=== PATIENT | male | born 1925 | race Caucasian/White ===

== ENCOUNTER 2016-12-22 13:23 | Inpatient (IN) | payer MEDICARE, OTHER ==
[~2016-12-22] VITALS: Ht 182.9 cm; Wt 111.0 kg
[2016-12-22] VITALS (17 sets, daily range): BP systolic 90–177; BP diastolic 64–134; PULSE 86–129; RESP 13–31; TEMP 98–98.2; O2SAT 91–100
[~2016-12-22 13:23] MED LIST: CARA1TAB6 PO; FERR1TAB36 PO; METO25TA3 PO; PANT40TA3 PO; POTA-243 PO
[2016-12-22] MEDS ORDERED: FERR200T PO (13:32)
[2016-12-22] MEDS ORDERED: XELO500T PO (14:09)
[2016-12-22] MEDS ORDERED: ASPI81CH CHEW (14:09)
[2016-12-22] MEDS ORDERED: ZOFR4TAB PO (14:09)
[2016-12-22] MEDS ORDERED: LISI2.5T3 PO (14:09)
[2016-12-22] MEDS ORDERED: VENTAER INH (14:09)
[2016-12-22 14:26] LABS: AUTOMATED NEUTROPHIL # 3.6 TH/MM3 (1.8-7.7); BASOPHIL % 0.8 % (0.0-2.0); EOSINOPHIL % 0.8 % (0.0-4.0); HEMATOCRIT 43.8 % (39.0-51.0); LYMPH % 15.8 % (9.0-44.0); LYMPHOCYTE # 0.9 TH/MM3 (1.0-4.8); MEAN CELL VOLUME 100.3 FL (80.0-100.0); MEAN CORPUSCULAR HEMOGLOBIN 32.4 PG (27.0-34.0); MEAN CORPUSCULAR HGB CONC 32.3 % (32.0-36.0); MONO % 17.4 % (0.0-8.0); NEUT % 65.2 % (16.0-70.0); RED BLOOD COUNT 4.37 MIL/MM3 (4.50-5.90); RED CELL DISTRIBUTION WIDTH 20.3 % (11.6-17.2); WHITE BLOOD COUNT 5.5 TH/MM3 (4.0-11.0)
[2016-12-22 14:31] LABS: HEMO FLAGS AUTO DIFF
--- NOTE | 2016-12-22 14:38 | RADRPT ---
EXAM DATE/TIME: 12/22/2016 14:18 [place] COMPARISON: CHEST SINGLE AP, April 25, 2016, 20:01. INDICATIONS : Shortness of breath today. MEDICAL HISTORY : Carcinoma, prostatic. Afib. SURGICAL HISTORY : Port. ENCOUNTER: Initial ACUITY: 1 day PAIN SCORE: 0/10 LOCATION: Bilateral chest FINDINGS: A single view of the chest demonstrates prominence of the pulmonary vasculature bilaterally. There ap pears to be an infiltrate and/or effusion the left lower lung. This is new compared to the prior exam . The heart size is mildly enlarged. There is an [id number] on the right side. The bony structures are stable. CONCLUSION: 1. Pulmonary venous congestion. 2. Infiltrate and effusion in the left lung base. 3. Cardiomegaly. Amor Shaikh MD on December 22, 2016 at 14:35 Board Certified Radiologist. This report was verified electronically.
[2016-12-22 14:39] LABS: CHLORIDE 106 MEQ/L (98-107); POTASSIUM 3.8 MEQ/L (3.5-5.1); SODIUM (NA) 142 MEQ/L (136-145)
[2016-12-22 14:43] LABS: ANION GAP 10 MEQ/L (5-15); APTT (PATIENT) 24.5 SEC (24.3-30.1); BICARBONATE 25.9 MEQ/L (21.0-32.0); MAGNESIUM 1.8 MG/DL (1.5-2.5); PROTHROMBIN TIME - PATIENT 11.4 SEC (9.8-11.6)
[2016-12-22 14:44] LABS: BLOOD UREA NITROGEN 21 MG/DL (7-18)
[2016-12-22] MEDS ORDERED: CAPE1TAB2 PO (14:44)
[2016-12-22 14:46] LABS: ALT (GPT) 41 U/L (12-78); AST (GOT) 63 U/L (15-37); GLOMERULAR FILTRATION RATE 63 ML/MIN (>89)
[2016-12-22 14:48] LABS: TOTAL BILIRUBIN ADULT 1.1 MG/DL (0.2-1.0)
[2016-12-22 14:49] LABS: ALKALINE PHOSPHATASE 234 U/L (45-117); CREATINE KINASE 125 U/L (39-308)
--- NOTE | 2016-12-22 14:52 | PD ---
HPI Chief Complaint: Respiratory Symptoms Time Seen by Provider: 13:32 Travel History International Travel<30 days: No Contact w/Intl Traveler<30days: No Traveled to known affect area: No History of Present Illness HPI Patient is an 89-year-old male with history of stage IV adenocarcinoma of the stomach, atrial fibrillation currently not on anticoagulation secondary to high risk of GI bleeding, prostate adenocarcinoma, hypertension, dementia, subacute CVA, GERD, hypertension, sleep apnea presents to emergency room with complaints of shortness of breath. Patient reports that he has been dealing with his shortness of breath for years, reports that he used to be a past smoker and does have some lung problems, reports that he has been more short of breath this morning. Patient denies any chest pain at this time, reports of breath at rest as well as on exertion. Patient denies any fevers or chills, reports that sometimes he coughs and doesn't think that he brings anything up. Overall, patient is a poor historian PFSH Past Medical History Hx Anticoagulant Therapy: No (STATES NONE - ON PRADAXA AT SOME TIME AGO) Anxiety: No Depression: No Heart Rhythm Problems: Yes (a fib ) Cancer: Yes (PROSTATE CANCER, STOMACH CANCER) Cardiovascular Problems: Yes (HTN) Chemotherapy: Yes Diabetes: No Diminished Hearing: No Endocrine: No Gastrointestinal Disorders: Yes (GIB) GERD: Yes Glaucoma: No Hepatitis: No Hiatal Hernia: No Hypertension: Yes Immune Disorder: No Implanted Vascular Access Dvce: No Medical other: No Musculoskeletal: No Neurologic: No Psychiatric: No Reproductive: No Respiratory: Yes (SLEEP APNEA ON CPAP AND RESPIRATORY PROBLEMS PER PT.) Sleep Apnea: Yes Thyroid Disease: No Tetanus Vaccination: Unknown Past Surgical History Abdominal Surgery: Yes (DINESH, APPY) Cardiac Surgery: No Ear Surgery: No Endocrine Surgery: No Eye Surgery: Yes (RIGHT EYE CATARACT EXTRACT) Genitourinary Surgery: Yes (PROSTATE) Gynecologic Surgery: No Neurologic Surgery: No Oral Surgery: No Pacemaker: No Thoracic Surgery: No Other Surgery: Yes Social History Alcohol Use: Yes (RARE) Tobacco Use: No (QUIT 40 YEARS) Substance Use: No Allergies-Medications (Allergen,Severity, Reaction): Coded Allergies: Aspirin (Verified Allergy, Severe, SOB, 12/22/16) Ibuprofen (Verified Allergy, Severe, CAN'T BREATHE, 12/22/16) ALL NSAIDS Nonsteroidal Anti-Inflammatory Agts (Verified Allergy, Severe, SOB, 12/22/16 ) Reported Meds & Prescriptions Reported Meds & Active Scripts Active Reported Capecitabine 500 Mg Tab 1,000 Mg PO DIRECTED Cytotoxic agent. Swallow whole with water 30 minutes after a meal. Do not cut or crush. Ventolin Hfa 18 GM Inh (Albuterol Sulfate) 90 Mcg/Act Aer 2 Puff INH Q4-6H PRN Aspirin 81 Mg Chew 81 Mg CHEW DAILY Lisinopril 2.5 Mg Tab 2.5 Mg PO DAILY Zofran (Ondansetron HCl) 4 Mg Tab 4 Mg PO Q12HR PRN Review of Systems General / Constitutional: No: Fever Eyes: No: Visual changes HENT: No: Headaches Cardiovascular: No: Chest Pain or Discomfort Respiratory: Positive: Cough, Shortness of Breath Gastrointestinal: No: Abdominal Pain Genitourinary: No: Dysuria Musculoskeletal: No: Pain Skin: No Rash Neurologic: No: Weakness Psychiatric: No: Depression Endocrine: No: Polydipsia Hematologic/Lymphatic: No: Easy Bruising Physical Exam Narrative GENERAL: Moderate distress SKIN: Focused skin assessment warm/dry. HEAD: Atraumatic. Normocephalic. EYES: Pupils equal and round. No scleral icterus. No injection or drainage. ENT: No nasal bleeding or discharge. Mucous membranes pink and moist. NECK: Trachea midline. No JVD. CARDIOVASCULAR: Irregular rate and rhythm. No murmur appreciated. RESPIRATORY: No accessory muscle use. Clear to auscultation. Breath sounds equal bilaterally. GASTROINTESTINAL: Abdomen soft, non-tender, nondistended. Hepatic and splenic margins not palpable. MUSCULOSKELETAL: No obvious deformities. No clubbing. No cyanosis. No edema. NEUROLOGICAL: Awake and alert. PSYCHIATRIC: Appropriate mood and affect, pleasantly confused Data Data Last Documented VS Vital Signs Date Time Temp Pulse Resp B/P Pulse Ox O2 Delivery O2 Flow Rate FiO2 12/22/16 14:41 129 16 157/115 97 Nasal Cannula 2 12/22/16 13:46 98.2 Orders Complete Blood Count With Diff (12/22/16 13:57) Comprehensive Metabolic Panel (12/22/16 13:57) Prothrombin Time / Inr (Pt) (12/22/16 13:57) Act Partial Throm Time (Ptt) (12/22/16 13:57) Lactic Acid Sepsis Protocol (12/22/16 13:57) Magnesium (Mg) (12/22/16 13:57) Phosphorus (Po4) (12/22/16 13:57) Lipase (12/22/16 13:57) Ckmb (Isoenzyme) Profile (12/22/16 13:57) Troponin I (12/22/16 13:57) Urinalysis - C+S If Indicated (12/22/16 13:57) Blood Culture (12/22/16 13:57) Chest, Single Ap (12/22/16 13:57) Ecg Monitoring (12/22/16 13:57) Iv Access Insert/Monitor (12/22/16 13:57) Oximetry (12/22/16 13:57) Oxygen Administration (12/22/16 13:57) Vital Signs (Adult) Q15MX4,Q4H (12/22/16 14:38) Cardiac Rhythm WERNER.Q8H (12/22/16 14:38) Notify Dr: Other (12/22/16 14:38) Diltiazem Inj (Cardizem Inj) (12/22/16 14:45) CKMB (12/22/16 13:35) CKMB% (12/22/16 13:35) B-Type Natriuretic Peptide (12/22/16 14:54) Azithromycin Inj (Zithromax Inj) (12/22/16 15:00) Ceftriaxone Inj (Rocephin Inj) (12/22/16 15:00) Labs Laboratory Tests Test 12/22/16 12/22/16 13:35 14:00 White Blood Count 5.5 TH/MM3 Red Blood Count 4.37 MIL/MM3 Hemoglobin 14.1 GM/DL Hematocrit 43.8 % Mean Corpuscular Volume 100.3 FL Mean Corpuscular Hemoglobin 32.4 PG Mean Corpuscular Hemoglobin 32.3 % Concent Red Cell Distribution Width 20.3 % Platelet Count 27 TH/MM3 Mean Platelet Volume 8.1 FL Neutrophils (%) (Auto) 65.2 % Lymphocytes (%) (Auto) 15.8 % Monocytes (%) (Auto) 17.4 % Eosinophils (%) (Auto) 0.8 % Basophils (%) (Auto) 0.8 % Neutrophils # (Auto) 3.6 TH/MM3 Lymphocytes # (Auto) 0.9 TH/MM3 Monocytes # (Auto) 1.0 TH/MM3 Eosinophils # (Auto) 0.0 TH/MM3 Basophils # (Auto) 0.0 TH/MM3 Prothrombin Time 11.4 SEC Prothromb Time International 1.0 RATIO Ratio Activated Partial 24.5 SEC Thromboplast Time Sodium Level 142 MEQ/L Potassium Level 3.8 MEQ/L Chloride Level 106 MEQ/L Carbon Dioxide Level 25.9 MEQ/L Anion Gap 10 MEQ/L Blood Urea Nitrogen 21 MG/DL Creatinine 1.10 MG/DL Estimat Glomerular Filtration 63 ML/MIN Rate Random Glucose 101 MG/DL Calcium Level 8.8 MG/DL Phosphorus Level 2.9 MG/DL Magnesium Level 1.8 MG/DL Total Bilirubin 1.1 MG/DL Aspartate Amino Transf 63 U/L (AST/SGOT) Alanine Aminotransferase 41 U/L (ALT/SGPT) Alkaline Phosphatase 234 U/L Total Creatine Kinase 125 U/L Creatine Kinase MB 4.1 NG/ML Troponin I 0.07 NG/ML Total Protein 7.0 GM/DL Albumin 3.3 GM/DL Lipase 145 U/L Lactic Acid Level 1.5 mmol/L [facility] Medical Decision Making Medical Screen Exam Complete: Yes Emergency Medical Condition: Yes Interpretation(s) EKG at 1326: A. fib with RVR at 131 bpm, qt/qtc: 301/378 Vital Signs Date Time Temp Pulse Resp B/P Pulse Ox O2 Delivery O2 Flow Rate FiO2 12/22/16 14:11 120 20 165/113 97 Nasal Cannula 2 12/22/16 14:11 97 Nasal Cannula 2 12/22/16 13:46 98.2 126 18 177/134 97 12/22/16 13:42 97 Nasal Cannula 2 12/22/16 13:41 18 97 Nasal Cannula 2 Differential Diagnosis Differential includes A. fib with RVR, pneumonia, GI bleed, bronchitis, electrolyte abnormality Narrative Course Patient is a 89 year old male who presents to ER with c/o of sob. Overall, patient is a poor historian, I am not able to obtain any information other than he has been feeling sob for the past few years but has worsening symptoms today. I did review his prior records for full medical history. 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 fib with RVR with heart rate in the 130s. As per prior records , patient currently is not on any anticoagulation as he has history of gastric cancer, his risk of bleeding outweighs benefits of anticoagulation. X-ray of the chest ordered to evaluate for pneumonia, lab work including blood cultures and lactic acid ordered. Cardizem drip initiated as patient does have A. fib with RVR. Vital Signs Date Time Temp Pulse Resp B/P Pulse Ox O2 Delivery O2 Flow Rate FiO2 12/22/16 14:41 129 16 157/115 97 Nasal Cannula 2 12/22/16 14:11 120 20 165/113 97 Nasal Cannula 2 12/22/16 14:11 97 Nasal Cannula 2 12/22/16 13:46 98.2 126 18 177/134 97 12/22/16 13:42 97 Nasal Cannula 2 12/22/16 13:41 18 97 Nasal Cannula 2 Last Impressions Chest X-Ray 12/22/16 [id number] Signed Impressions: Service Date/Time: Thursday, December 22, 2016 14:18 - CONCLUSION: 1. Pulmonary venous congestion. 2. Infiltrate and effusion in the left lung base. 3. Cardiomegaly. Amor Shaikh MD Laboratory Tests Test 12/22/16 12/22/16 13:35 14:00 White Blood Count 5.5 TH/MM3 (4.0-11.0) Red Blood Count 4.37 MIL/MM3 (4.50-5.90) Hemoglobin 14.1 GM/DL (13.0-17.0) Hematocrit 43.8 % (39.0-51.0) Mean Corpuscular Volume 100.3 FL (80.0-100.0) Mean Corpuscular Hemoglobin 32.4 PG (27.0-34.0) Mean Corpuscular Hemoglobin 32.3 % Concent (32.0-36.0) Red Cell Distribution Width 20.3 % (11.6-17.2) Platelet Count 27 TH/MM3 (150-450) Mean Platelet Volume 8.1 FL (7.0-11.0) Neutrophils (%) (Auto) 65.2 % (16.0-70.0) Lymphocytes (%) (Auto) 15.8 % (9.0-44.0) Monocytes (%) (Auto) 17.4 % (0.0-8.0) Eosinophils (%) (Auto) 0.8 % (0.0-4.0) Basophils (%) (Auto) 0.8 % (0.0-2.0) Neutrophils # (Auto) 3.6 TH/MM3 (1.8-7.7) Lymphocytes # (Auto) 0.9 TH/MM3 (1.0-4.8) Monocytes # (Auto) 1.0 TH/MM3 (0-0.9) Eosinophils # (Auto) 0.0 TH/MM3 (0-0.4) Basophils # (Auto) 0.0 TH/MM3 (0-0.2) Prothrombin Time 11.4 SEC (9.8-11.6) Prothromb Time International 1.0 RATIO Ratio Activated Partial 24.5 SEC Thromboplast Time (24.3-30.1) Sodium Level 142 MEQ/L (136-145) Potassium Level 3.8 MEQ/L (3.5-5.1) Chloride Level 106 MEQ/L (98-107) Carbon Dioxide Level 25.9 MEQ/L (21.0-32.0) Anion Gap 10 MEQ/L (5-15) Blood Urea Nitrogen 21 MG/DL (7-18) Creatinine 1.10 MG/DL (0.60-1.30) Estimat Glomerular Filtration 63 ML/MIN (>89) Rate Random Glucose 101 MG/DL (74-106) Calcium Level 8.8 MG/DL (8.5-10.1) Phosphorus Level 2.9 MG/DL (2.5-4.9) Magnesium Level 1.8 MG/DL (1.5-2.5) Total Bilirubin 1.1 MG/DL (0.2-1.0) Aspartate Amino Transf 63 U/L (15-37) (AST/SGOT) Alanine Aminotransferase 41 U/L (12-78) (ALT/SGPT) Alkaline Phosphatase 234 U/L (45-117) Total Creatine Kinase 125 U/L (39-308) Troponin I 0.07 NG/ML (0.02-0.05) Total Protein 7.0 GM/DL (6.4-8.2) Albumin 3.3 GM/DL (3.4-5.0) Lipase 145 U/L (73-393) Lactic Acid Level 1.5 mmol/L (0.4-2.0) Patient with A. fib RVR, patient will be started on cardizem gtt. X-ray of the chest shows pulmonary venous congestion, and will treat effusion left lung base, cardiomegaly, and cultures, will give a dose of azithromycin as well as Rocephin. Patient will require admission at this time. case reviewed with patient's son who is at bedside Critical Care Narrative Aggregate critical care time was 30 minutes. Time to perform other separately billable procedures was not included in the critical care time. My time did not include minutes spent treating any other patients simultaneously or on activities that did not directly contribute to the patient's treatment. The services I provided to this patient were to treat and/or prevent clinically significant deterioration that could result in: , decompensation, deterioration I provided critical care services requiring my management, as noted below: Chart data review, documentation time, medication orders and management, vital sign assessments/reviewing monitor data, ordering and reviewing lab tests, ordering and interpreting/reviewing x-rays and diagnostic studies, care of the patient and discussion of the patient with the admitting physicians. Physician Communication Physician Communication case reviewed with dr. moseley who accepts pt to service Diagnosis Primary Impression: Atrial fibrillation with rapid ventricular response Additional Impressions: SOB (shortness of breath) Elevated troponin Admitting Information Admitting Physician Requests: Admit Jeny Lopez DO Dec 22, 2016 14:52
[2016-12-22] MEDS: DILTIAZEM INJ 125 MG in SODIUM CHLORIDE 0.9% INJ 100 ML IV SCH ×2 (14:56→23:22)
[2016-12-22] MEDS ORDERED: cefTRIAXone INJ 1,000 MG in SODIUM CHLORIDE 0.9% INJ 100 ML IV ONE (15:00)
[2016-12-22] MEDS ORDERED: AZITHROMYCIN INJ 500 MG in SODIUM CHLOR 0.9% 250 ML INJ 250 ML IV ONE (15:00)
[2016-12-22 15:01] LABS: CKMB 4.1 NG/ML (0.5-3.6)
[2016-12-22 15:59] LABS: BLOOD, URINE TRACE (NEG); GLUCOSE,URINE NEG (NEG); KETONE, URINE NEG (NEG); NITRITE,URINE NEG (NEG)
[2016-12-22] MEDS ORDERED: FUROSEMIDE 40 MG/4 ML VIAL IV PUSH ONE (16:00)
[2016-12-22] MEDS: RESP: ALBUTEROL 2.5 MG/IPRATROPIUM 0.5 MG NEB (SCH) INH ×2 (16:10→16:11)
[2016-12-22 16:12] LABS: MUCUS URINE RARE /lpf (OCC); RBC, URINE 0-3 /hpf (0-3); SQUAMOUS EPITHELIAL CELL URINE 0-2 /hpf (0-5); URINE COLOR YELLOW (YELLW/STRAW); WBC, URINE 0-2 /hpf (0-5)
[2016-12-22 16:13] LABS: COMMENT (UR) CULT NOT INDICATED; CULTURE IF INDICATED CULT NOT INDICATED
[2016-12-22] MEDS ORDERED: DILTIAZEM HCL 25 MG/5 ML VIAL IV ONE (16:30)
[2016-12-22 17:00] LABS: BLOOD GAS BASE EXCESS -0.2 mmol/L (-2-2); BLOOD GAS HCO3 24 mmol/L (22-26); BLOOD GAS METHEMOGLOBIN 1.1 % (0-2); BLOOD GAS O2 HGB SATURATION 95 % (90-100); BLOOD GAS OXYGEN CONTENT 17.9 Vol % (12.0-20.0); BLOOD GAS PCO2 36 mmHG (38-42); BLOOD GAS PO2 99 mmHG (61-120); BLOOD GAS TOTAL HGB 13.3 G/DL (12.0-16.0); TEMP CORR TO 98.6
[2016-12-22 17:01] LABS: CRITICAL VALUE NO; OXYGEN DEVICE BIPAP
[2016-12-22 17:02] LABS: DRAW SITE LT RADIAL; FIO2 40 %; NUMBER OF ARTERIAL PUNCTURES 1; STAT YES; ULNAR PULSE PRESENT; VENT SETTINGS 15 IPAP/5 EPAP
[2016-12-22] MEDS ORDERED: SODIUM CHLORIDE 0.9% FLUSH 10 ML FLUSH IV FLUSH PRN (17:45)
[2016-12-22] MEDS ORDERED: CAPECITABINE 1000 MG PO SCH (17:45)
[2016-12-22 17:57] LABS: PLATELET ESTIMATE SMEAR LOW (NORMAL)
[2016-12-22 17:58] LABS: PLATELET COUNT 62 TH/MM3 (150-450)
[2016-12-22 18:00] LABS: PLATELET MORPHOLOGY CLUMPED (NORMAL); SCAN/DIFF AUTO DIFF CONFIRMED
--- NOTE | 2016-12-22 18:14 | HHI.HP ---
[facility] Primary Care Physician James Christian MD Admission Diagnosis afib with rvr, pneumonia Diagnoses: (1) Severe sepsis Diagnosis: Principal (2) Acute respiratory failure Diagnosis: Principal (3) Acute congestive heart failure Diagnosis: Principal (4) Elevated troponin Diagnosis: Principal (5) Pneumonia involving left lung Diagnosis: Principal (6) Atrial fibrillation with rapid ventricular response Diagnosis: Principal (7) Thrombocytopenia Diagnosis: Principal Chief Complaint: Shortness of breath and dyspnea Travel History International Travel<30 Days: No Contact w/Intl Traveler <30 Da: No Traveled to Known Affected Are: No Sepsis Criteria SIRS Criteria (2 or more): Heart rate over 90, RR > 20 or PaCO2 < 32 Sepsis Criteria (SIRS+source): Infect source susp/known Severe Sepsis (+one): Organ Dysfunction Criteria Outcome: Meets severe sepsis criteria History of Present Illness Written by Raffi Fairbanks, acting as scribe for Dr. Ridley on 12/22/16 at 17:41. 89 year-old male with rather complex medical history with hypertension , chronic atrial fibrillation not on anticoagulation due to recent GI bleed, recent gastric cancer stage IV, history of prostate cancer, obstructive sleep apnea who presented to hospital because of shortness of breath and dyspnea. Patient is in respiratory failure at this time and is with BiPAP in the emergency department. Most information was taken from family at bedside, patient did participate in difficult responses. As indicated that patient has had increased shortness of breath and dyspnea over the last 2 weeks which progressively got worse where he cannot lay down over the last few days. He was able lay flat prior to this, however he is unable to indicate only sit up when he sleeps. Patient has had increased lower extremity edema. He does have a audio visual equipment rental clerk Dr. carter, does not indicate that he has been seen by him recently. Patient denies any chest pain, nausea, vomiting, lightheadedness, dizziness. Patient had workup done emergency department and on presentation had atrial fibrillation with RVR. Patient was started on Cardizem IV for rate control. Patient progressively got short of breath and required BiPAP placement with settings 15/5/40%. Blood gas was done at that time which does show pH 7.43, PCO2 36, PO2 99, bicarbonate 24, O2 saturation 95. The family and patient at bedside. They indicate that he does have a living will, patient indicates he does not want to be intubated and wants to be a no code at this time. Review of Systems Constitutional: DENIES: Diaphoretic episodes, Fatigue, Fever, Weight gain, Weight loss, Chills, Dizziness, Change in appetite, Night Sweats Eyes: DENIES: Blurred vision, Diplopia, Eye inflammation, Eye pain, Vision loss , Double Vision Ears, nose, mouth, throat: DENIES: Hearing loss, Nasal discharge, Throat pain, Ear Pain, Running Nose, Sinus Pain Respiratory: COMPLAINS OF: Shortness of breath, DENIES: Apneas, Cough, Snoring , Wheezing, Hemoptysis, Sputum production Cardiovascular: COMPLAINS OF: Dyspnea on Exertion, Lower Extremity Edema, Orthopnea, DENIES: Chest pain, Palpitations, Syncope Gastrointestinal: DENIES: Abdominal pain, Black stools, Bloody stools, Constipation, Diarrhea, Nausea, Vomiting, Difficulty Swallowing, Anorexia Neurologic: DENIES: Abnormal gait, Headache, Localized weakness, Paresthesias, Seizures, Speech Problems, Tremor, Poor Balance Past Family Social History Past Medical History Hypertension Chronic atrial fibrillation History GI bleed Gastroesophageal reflux History tobacco use History gastric cancer, stage IV Thrombocytopenia History of prostate cancer History of aortic stenosis Past Surgical History Right eye cataract surgery Endoscopy/colonoscopy Cholecystectomy Appendectomy Left total hip replacement Right knee replacement Prostatectomy Reported Medications Reported Meds & Active Scripts Active Reported Capecitabine 500 Mg Tab 1,000 Mg PO DIRECTED Cytotoxic agent. Swallow whole with water 30 minutes after a meal. Do not cut or crush. Ventolin Hfa 18 GM Inh (Albuterol Sulfate) 90 Mcg/Act Aer 2 Puff INH Q4-6H PRN Aspirin 81 Mg Chew 81 Mg CHEW DAILY Lisinopril 2.5 Mg Tab 2.5 Mg PO DAILY Zofran (Ondansetron HCl) 4 Mg Tab 4 Mg PO Q12HR PRN Allergies: Coded Allergies: Aspirin (Verified Allergy, Severe, SOB, 12/22/16) Ibuprofen (Verified Allergy, Severe, CAN'T BREATHE, 12/22/16) ALL NSAIDS Nonsteroidal Anti-Inflammatory Agts (Verified Allergy, Severe, SOB, 12/22/16 ) Family History Reviewed is significant for aunt with cancer Social History Patient is does live with his and has 3 children, 2 of which are still alive. Patient quit smoking 40 years ago, does drink alcohol rarely. Denies any illicit drugs Physical Exam Vital Signs Vital Signs Date Time Temp Pulse Resp B/P Pulse Ox O2 Delivery O2 Flow Rate FiO2 12/22/16 17:33 95 Venturi Mask 50 12/22/16 16:30 91 99/66 97 12/22/16 16:27 105 20 143/106 99 BiPAP 50 12/22/16 16:15 100 50 12/22/16 14:41 129 16 157/115 97 Nasal Cannula 2 12/22/16 14:11 120 20 165/113 97 Nasal Cannula 2 12/22/16 14:11 97 Nasal Cannula 2 12/22/16 13:46 98.2 126 18 177/134 97 12/22/16 13:42 97 Nasal Cannula 2 12/22/16 13:41 18 97 Nasal Cannula 2 Physical Exam GENERAL: Well-developed, well-nourished, in respiratory distress on BiPAP. alert and orientated HEENT: Head is normocephalic without any lesions or masses noted. Facial features are symmetric. Eyes: Pupils equal round reactive to light. Extraocular muscles are intact. Conjunctivae were clear. Oropharyngeal: Pharynx without any erythema edema. Tongue is midline without deviation. Buccal mucosa is moist without any masses or lesions NECK: Supple without any masses. Trachea midline no deviation. No JVD, no bruits are appreciated CARDIAC: Regular rhythm, regular rate. S1/S2 are heard. No murmurs gallops or rubs. LUNGS: Crackles noted bilaterally. No wheeze, rhonchi or rales. No use of accessory muscles on inspiration or expiration. ABDOMEN: Soft, nontender. Nondistended. Bowel sounds heard in all 4 quadrants. No organomegaly or masses. Negative rebound, negative guarding EXTREMITIES: 3+ pitting edema noted in bilateral lower extremities, pulses are equal bilaterally. No cyanosis or clubbing NEUROLOGY: Mood and affect appear appropriate. Cranial nerves II through XII grossly intact. Muscle strength 5/5 in upper and lower extremities bilaterally. Deep tendon reflexes are 2+ in upper and lower extremities bilaterally. Laboratory Laboratory Tests Test 12/22/16 12/22/16 12/22/16 12/22/16 13:35 13:40 14:00 15:50 Prothrombin Time 11.4 Prothromb Time International 1.0 Ratio Activated Partial 24.5 Thromboplast Time Sodium Level 142 Potassium Level 3.8 Chloride Level 106 Carbon Dioxide Level 25.9 Anion Gap 10 Blood Urea Nitrogen 21 Creatinine 1.10 Estimat Glomerular Filtration 63 Rate Random Glucose 101 Calcium Level 8.8 Phosphorus Level 2.9 Magnesium Level 1.8 Total Bilirubin 1.1 Aspartate Amino Transf 63 (AST/SGOT) Alanine Aminotransferase 41 (ALT/SGPT) Alkaline Phosphatase 234 Total Creatine Kinase 125 Creatine Kinase MB 4.1 Troponin I 0.07 Total Protein 7.0 Albumin 3.3 Lipase 145 B-Type Natriuretic Peptide 919 Lactic Acid Level 1.5 Urine Color YELLOW Urine Turbidity CLEAR Urine pH 7.0 Urine Specific Rosebud 1.015 Urine Protein 30 Urine Glucose (UA) NEG Urine Ketones NEG Urine Occult Blood TRACE Urine Nitrite NEG Urine Bilirubin NEG Urine Leukocyte Esterase NEG Urine RBC 0-3 Urine WBC 0-2 Urine Squamous Epithelial 0-2 Cells Urine Mucus RARE Microscopic Urinalysis Comment CULT NOT INDICATED Test 12/22/16 12/22/16 16:13 16:52 White Blood Count 5.5 Red Blood Count 4.37 Hemoglobin 14.1 Hematocrit 43.8 Mean Corpuscular Volume 100.3 Mean Corpuscular Hemoglobin 32.4 Mean Corpuscular Hemoglobin 32.3 Concent Red Cell Distribution Width 20.3 Platelet Count 27 Mean Platelet Volume 8.1 Neutrophils (%) (Auto) 65.2 Lymphocytes (%) (Auto) 15.8 Monocytes (%) (Auto) 17.4 Eosinophils (%) (Auto) 0.8 Basophils (%) (Auto) 0.8 Neutrophils # (Auto) 3.6 Lymphocytes # (Auto) 0.9 Monocytes # (Auto) 1.0 Eosinophils # (Auto) 0.0 Basophils # (Auto) 0.0 Blood Gas Puncture Site LT RADIAL Blood Gas Patient Temperature 98.6 Blood Gas HCO3 24 Blood Gas Base Excess -0.2 Blood Gas Oxygen Saturation 95 Arterial Blood pH 7.43 Arterial Blood Partial 36 Pressure CO2 Arterial Blood Partial 99 Pressure O2 Arterial Blood Oxygen Content 17.9 Arterial Blood 2.0 Carboxyhemoglobin Arterial Blood Methemoglobin 1.1 Blood Gas Hemoglobin 13.3 Oxygen Delivery Device BIPAP Blood Gas Ventilator Setting 15 IPAP/5 EPAP Blood Gas Inspired Oxygen 40 Date/Time Procedure Status Source Growth 12/22/16 13:40 Aerobic Blood Culture Received Blood Peripheral Pending 12/22/16 13:40 Anaerobic Blood Culture Received Blood Peripheral Pending Result Diagram: 12/22/16 1613 12/22/16 1335 Imaging Last Impressions Chest X-Ray 12/22/16 1357 Signed Impressions: Service Date/Time: Thursday, December 22, 2016 14:18 - CONCLUSION: 1. Pulmonary venous congestion. 2. Infiltrate and effusion in the left lung base. 3. Cardiomegaly. Amor Shaikh MD Septic Shock Reassessment Heart: Irregular, Other (irregular rhythm, irregular rate) Lungs: Crackles Skin: Warm, Moist Peripheral Pulses: Bounding Right Radial Bounding Left Radial Capillary Refill: Brisk, <2 seconds Assessment and Plan Problem List: (1) Severe sepsis ICD Code: A41.9 Status: Acute Plan: Patient meets criteria with tachycardia, tachypnea, community-acquired pneumonia, respiratory failure Patient started on empirical antibiotics to include Rocephin and Zithromax Continue follow blood cultures Obtain sputum culture (2) Acute respiratory failure ICD Code: J96.00 Status: Acute Plan: Patient with acute respiratory failure with underlying congestive heart failure, pneumonia, elevated troponin Arterial blood gas shows improvement on BiPAP Continue BiPAP 15/5/40%, continue weaning FiO2 to maintain O2 sats greater than 92% Chest x-ray shows venous congestion and infiltrate and effusion of the left lung base Continue diuresis Continue nebulizer treatment Start incentive spirometry (3) Acute congestive heart failure ICD Code: I50.9 Status: Acute Plan: Patient not have any previous history congestive heart failure, could be related to atrial fibrillation with RVR Chest x-ray does show poorly venous congestion BP elevation Lower extremity edema Continue aggressive diuresis Insert Jones for accurate input and output Obtain echocardiogram Consult cardiology for recommendations (4) Elevated troponin ICD Code: R74.8 Status: Acute Plan: This could be secondary to congestive heart failure, atrial fibrillation Continue to trend cardiac enzymes to rule out any acute coronary event (5) Atrial fibrillation with rapid ventricular response ICD Code: I48.91 Status: Acute Plan: Patient does have chronic atrial fibrillation, unable to anticoagulate secondary to recent GI bleed and thrombocytopenia Continue Cardizem IV, continue to wean to maintain heart rate less than 100 Cardiology will be consulted for recommendations (6) Pneumonia involving left lung ICD Code: J18.9 Status: Acute Plan: Chest x-ray with left lung pneumonia, likely community-acquired infiltrate, most recent hospitalization was 8 months ago Continue antibiotics for treatment required pneumonias include Rocephin and Zithromax Obtain sputum culture (7) Thrombocytopenia ICD Code: D69.6 Status: Acute Plan: Appears patient does have history of pancytopenia, Continue monitor platelet count Consult director of dementia operations for monitoring recommendations Assessment and Plan Critical care time 40 minutes excluding procedures This note was transcribed by benjamin Fairbanks. I, Dr. Blas Duarte personally performed the history, physical exam, and medical decision making; and confirmed the accuracy of the information in the transcribed note. Authenticated by Dr. Blas Duarte on 12/22/16 at 18:26. Code Status No code, this was confirmed by patient Discussed Condition With Discussed with ER physician, at bedside, signed bedside Physician Certification 2 Midnight Certification Type: Admission for Inpatient Services Order for Inpatient Services The services are ordered in accordance with Medicare regulations or non- Medicare payer requirements, as applicable. In the case of services not specified as inpatient-only, they are appropriately provided as inpatient services in accordance with the 2-midnight benchmark. Estimated LOS (days): 3 days is the estimated time the patient will need to remain in the hospital, assuming treatment plan goals are met and no additional complications. Post-Hospital Plan: Not yet determined Problem Qualifiers (1) Acute respiratory failure: Qualified Code: J96.00 - Acute respiratory failure, unspecified whether with hypoxia or hypercapnia (2) Acute congestive heart failure: Qualified Code: I50.9 - Acute congestive heart failure, unspecified congestive heart failure type (3) Pneumonia involving left lung: Qualified Code: J18.1 - Pneumonia of left lower lobe due to infectious organism Raffi Fairbanks Dec 22, 2016 18:13 Blas Jones MD Dec 22, 2016 18:26
[2016-12-22] MEDS ORDERED: RESP: ALBUTEROL 2.5 MG/IPRATROPIUM 0.5 MG NEB (PRN) NEB (18:15)
[2016-12-22] MEDS: FUROSEMIDE 40 MG/4 ML VIAL IVP SCH (19:38)
[2016-12-22] MEDS: RESP: ALBUTEROL 2.5 MG/IPRATROPIUM 0.5 MG NEB (SCH) NEB (21:25)
[2016-12-22] MEDS: MUPIROCIN 2% OINT 1 APPLIC/GM SYR NASAL SCH (21:42)
[2016-12-22] MEDS: SODIUM CHLORIDE 0.9% FLUSH 10 ML FLUSH IV FLUSH SCH (21:42)
[2016-12-23] VITALS (33 sets, daily range): BP systolic 84–133; BP diastolic 59–91; PULSE 75–108; RESP 16–35; TEMP 97.7–98.5; O2SAT 88–96
[2016-12-23] MEDS: CHLORHEXIDINE GLUCONATE 2 % 1 PACK (2 CLOTHS)(taper/protocol) TOPICAL SCH (04:00)
[2016-12-23] MEDS ORDERED: CHLORHEXIDINE GLUCONATE 2 % 1 PACK (2 CLOTHS)(extra cloths) TOPICAL PRN (05:00)
[2016-12-23 05:23] LABS: POTASSIUM 3.3 MEQ/L (3.5-5.1)
[2016-12-23] MEDS: RESP: ALBUTEROL 2.5 MG/IPRATROPIUM 0.5 MG NEB (SCH) NEB ×3 (07:27→19:57)
[2016-12-23] MEDS: FUROSEMIDE 40 MG/4 ML VIAL IVP SCH ×2 (08:37→17:50)
[2016-12-23] MEDS: MUPIROCIN 2% OINT 1 APPLIC/GM SYR NASAL SCH ×2 (08:38→21:14)
[2016-12-23] MEDS: ASPIRIN 81 MG CHEW TAB CHEW SCH (08:38)
[2016-12-23] MEDS: SODIUM CHLORIDE 0.9% FLUSH 10 ML FLUSH IV FLUSH SCH ×2 (08:38→21:00)
[2016-12-23] MEDS ORDERED: PNEUMOCOCCAL POLYVALENT INJ 25 MCG/0.5 ML SYR IM ONE (09:00)
[2016-12-23] MEDS ORDERED: POTASSIUM CHLORIDE 10 MEQ CONTROLLED RELEASE TAB PO ONE (09:00)
[2016-12-23] MEDS ORDERED: PATIENT OWN MEDICATION PO SCH (09:00)
[2016-12-23] MEDS: DILTIAZEM INJ 125 MG in SODIUM CHLORIDE 0.9% INJ 100 ML IV SCH (09:46)
--- NOTE | 2016-12-23 10:56 | HHI.PR ---
Subjective Remarks The patient is sitting in the chair, currently satting well on 3 L by nasal cannula. The patient said he has sleep apnea and he is using CPAP at night. He doesn't have his machine here. He was on BiPAP last night. Patient says she feels improved today he has less shortness of breath. No palpitations. His heart rate is noted in 90s. Denies lightheadedness, chest pain, nausea, diaphoresis. No nausea, vomiting, diarrhea. He complains of constipation. No fever or chills. No cough Objective Vitals Vital Signs Date Time Temp Pulse Resp B/P Pulse Ox O2 Delivery O2 Flow Rate FiO2 12/23/16 07:27 95 Nasal Cannula 3.00 12/23/16 06:00 96 31 119/80 93 12/23/16 05:30 78 22 119/78 93 12/23/16 05:00 75 12/23/16 05:00 80 21 120/84 93 12/23/16 04:30 82 26 105/76 92 12/23/16 04:00 98.3 84 22 125/81 92 12/23/16 03:30 88 22 118/81 90 12/23/16 03:00 80 21 130/77 92 12/23/16 03:00 82 12/23/16 02:30 90 25 133/77 88 12/23/16 02:00 80 22 115/79 90 12/23/16 01:30 76 19 117/75 91 12/23/16 01:00 81 12/23/16 01:00 92 28 131/89 91 12/23/16 00:30 84 24 123/78 90 12/23/16 00:05 90 Nasal Cannula 3.00 12/23/16 00:00 90 Nasal Cannula 3.00 12/23/16 00:00 40 12/23/16 00:00 98.5 86 25 111/67 96 12/22/16 23:30 86 18 106/75 94 12/22/16 23:00 86 20 112/76 95 12/22/16 23:00 88 12/22/16 22:30 92 29 111/80 95 12/22/16 22:00 94 22 110/91 91 12/22/16 21:30 96 31 115/80 93 12/22/16 21:24 93 40 12/22/16 21:00 86 13 90/64 94 12/22/16 20:06 98.0 96 27 131/83 91 12/22/16 20:00 102 12/22/16 20:00 93 Bi-Pap 40 12/22/16 20:00 40 12/22/16 20:00 94 25 131/83 94 12/22/16 19:34 94 40 12/22/16 17:50 96 50 12/22/16 17:49 110 18 96 12/22/16 17:33 95 Venturi Mask 50 12/22/16 16:30 91 99/66 97 12/22/16 16:27 105 20 143/106 99 BiPAP 50 12/22/16 16:15 100 50 12/22/16 14:41 129 16 157/115 97 Nasal Cannula 2 12/22/16 14:11 120 20 165/113 97 Nasal Cannula 2 12/22/16 14:11 97 Nasal Cannula 2 12/22/16 13:46 98.2 126 18 177/134 97 12/22/16 13:42 97 Nasal Cannula 2 12/22/16 13:41 18 97 Nasal Cannula 2 I/O 12/22/16 12/22/16 12/22/16 12/23/16 12/23/16 12/23/16 07:00 15:00 23:00 07:00 15:00 23:00 Intake Total 516 ml 156 ml Output Total 4475 ml 1675 ml Balance -3959 ml -1519 ml Intake Oral 0 ml 60 ml IV Total 516 ml 96 ml Output Urine Total 4475 ml 1675 ml # Bowel Movements 0 0 Result Diagram: 12/22/16 1613 12/23/16 0433 Imaging Last Impressions Chest X-Ray 12/22/16 1357 Signed Impressions: Service Date/Time: Thursday, December 22, 2016 14:18 - CONCLUSION: 1. Pulmonary venous congestion. 2. Infiltrate and effusion in the left lung base. 3. Cardiomegaly. Amor Shaikh MD Objective Remarks GENERAL: Well-developed, well-nourished, in respiratory distress on BiPAP. alert and orientated CARDIAC: Regular rhythm, regular rate. S1/S2 are heard. No murmurs gallops or rubs. LUNGS: Crackles noted bilaterally. No wheeze, rhonchi or rales. No use of accessory muscles on inspiration or expiration. ABDOMEN: Soft, nontender. Nondistended. Bowel sounds heard in all 4 quadrants. No organomegaly or masses. Negative rebound, negative guarding EXTREMITIES: 3+ pitting edema noted in bilateral lower extremities, pulses are equal bilaterally. No cyanosis or clubbing NEUROLOGY: Mood and affect appear appropriate. Cranial nerves II through XII grossly intact. Muscle strength 5/5 in upper and lower extremities bilaterally. Deep tendon reflexes are 2+ in upper and lower extremities bilaterally. A/P Problem List: (1) Severe sepsis ICD Code: A41.9 Status: Acute (2) Acute respiratory failure ICD Code: J96.00 Status: Acute (3) Acute congestive heart failure ICD Code: I50.9 Status: Acute (4) Elevated troponin ICD Code: R74.8 Status: Acute (5) Atrial fibrillation with rapid ventricular response ICD Code: I48.91 Status: Acute (6) Pneumonia involving left lung ICD Code: J18.9 Status: Acute (7) Thrombocytopenia ICD Code: D69.6 Status: Acute Assessment and Plan (1) Severe sepsis. Resolving. ICD Code: A41.9 Status: Acute Plan: Patient meets criteria with tachycardia, tachypnea, community-acquired pneumonia, respiratory failure on admission Patient started on empirical antibiotics to include Rocephin and Zithromax Continue follow blood cultures, NTD Sputum cultures pending (2) Acute respiratory failure. Resolving Patient with h/o sleep apnea on CPAP at night ICD Code: J96.00 Status: Acute Plan: Patient with acute respiratory failure with underlying congestive heart failure, pneumonia, elevated troponin Arterial blood gas shows improvement on BiPAP Continue BiPAP at night, continue weaning FiO2 to maintain O2 sats greater than 92%. Currently satting well on 3L NC. Chest x-ray shows venous congestion and infiltrate and effusion of the left lung base Continue diuresis Continue nebulizer treatment Start incentive spirometry (3) Acute congestive heart failure ICD Code: I50.9 Status: Acute Plan: Patient not have any previous history congestive heart failure, could be related to atrial fibrillation with RVR Chest x-ray does show poorly venous congestion BP elevation Lower extremity edema Continue aggressive diuresis Insert Jones for accurate input and output Obtain echocardiogram Consult cardiology for recommendations (4) Elevated troponin ICD Code: R74.8 Status: Acute Plan: This could be secondary to congestive heart failure, atrial fibrillation Continue to trend cardiac enzymes to rule out any acute coronary event. No chest pain. (5) Atrial fibrillation with rapid ventricular response ICD Code: I48.91 Status: Acute Plan: Patient does have chronic atrial fibrillation, unable to anticoagulate secondary to recent GI bleed and thrombocytopenia Continue Cardizem IV, continue to wean to maintain heart rate less than 100. Transition to PO cardizem. Turn off cardizem drip if HRsustained < 90 and turn on drip if HR sustained > 110 Cardiology consulted for recommendations (6) Pneumonia involving left lung ICD Code: J18.9 Status: Acute Plan: Chest x-ray with left lung pneumonia, likely community-acquired infiltrate, most recent hospitalization was 8 months ago Continue antibiotics for treatment required pneumonias include Rocephin and Zithromax Sputum culture pending (7) Thrombocytopenia ICD Code: D69.6 Status: Acute Plan: Appears patient does have history of pancytopenia, Continue monitor platelet count. Consult fisher crab for monitoring recommendations Code Status No code, this was confirmed by patient Discussed Condition With Discussed with the patient.nurse Problem Qualifiers (1) Acute respiratory failure: Qualified Code: J96.00 - Acute respiratory failure, unspecified whether with hypoxia or hypercapnia (2) Acute congestive heart failure: Qualified Code: I50.9 - Acute congestive heart failure, unspecified congestive heart failure type (3) Pneumonia involving left lung: Qualified Code: J18.1 - Pneumonia of left lower lobe due to infectious organism Sarahy García MD Dec 23, 2016 10:56
[2016-12-23] MEDS ORDERED: DILTIAZEM INJ 125 MG in SODIUM CHLORIDE 0.9% INJ 100 ML IV SCH (11:00)
--- NOTE | 2016-12-23 12:19 | PD.CONS ---
HPI Service Cardiology physicians Consult Requested By Dr White Reason for Consult afib RVR, CHF Primary Care Physician James Christian MD History of Present Illness The patient is an 89 year old male known to Dr Hilario with a cardiac history of chronic afib not a candidate for anticoagulation due to GI bleed and thrombocytopenia, HTN, mild MS and mild carotid stenosis. The patient presented to the hospital for a 1 weeks history of progressively worsening SOB and edema. When he arrived, he had severe SOB and was transiently treated with BIPAP therapy. He was noted to have atrial fibrillation with rapid ventricular response. He does not use diuretic therapy at home. He denies recent change in his diet. He drinks one glass of wine per night. He denies recent evidence of GI bleed. He is a DNR. (Paige Batres) Review of Systems Consitutional: COMPLAINS OF: Weight gain, DENIES: Fatigue, Fever, Chills, Weight loss Eyes: DENIES: Amaurosis Fugax, Change in vision HEENT: DENIES: Lightheadedness, Change in hearing Respiratory: COMPLAINS OF: Shortness of breath, DENIES: See HPI, Cough, Snoring, Wheezing, Sputum production Cardiovascular: COMPLAINS OF: Tachycardia, DENIES: See HPI, Chest pain, Palpitations, Syncope Gastrointestinal: DENIES: Nausea, Vomiting, Change in bowel habits, Reflux, Bloody stools, Melena Genitourinary: DENIES: Urinary incontinence, Difficulty voiding Integumentary: DENIES: Rash Neurologic: COMPLAINS OF: Memory problems, DENIES: Tingling or numbness, Poor Balance, Stroke symptoms Musculoskeletal: DENIES: Joint pain, Muscle pain, Limited range of motion, Back pain Psychiatric: DENIES: Anxiety, Depression, Sleep disturbances Hematologic: COMPLAINS OF: Bruising tendencies, DENIES: Bleeding tendencies Endocrine: DENIES: Weight gain, Weight loss, Thyroid disease (Paige Batres ) Past Family Social History Allergies: Coded Allergies: Aspirin (Verified Allergy, Severe, SOB, 12/22/16) Ibuprofen (Verified Allergy, Severe, CAN'T BREATHE, 12/22/16) ALL NSAIDS Nonsteroidal Anti-Inflammatory Agts (Verified Allergy, Severe, SOB, 12/22/16 ) Past Medical History Chronic atrial fibrillation ASHD- history of abnormal cardiac stress test 08/2015 Thrombocytopenia GI bleed, hx gastic cancer and barretts esophagus Mild aortic stenosis Past Surgical History [facility] 09/2015 Prostatectomy Left hip replacement right knee replacement cholecystectomy appendectomy Reported Medications Reported Meds & Active Scripts Active Reported Capecitabine 500 Mg Tab 1,000 Mg PO DIRECTED Cytotoxic agent. Swallow whole with water 30 minutes after a meal. Do not cut or crush. Ventolin Hfa 18 GM Inh (Albuterol Sulfate) 90 Mcg/Act Aer 2 Puff INH Q4-6H PRN Aspirin 81 Mg Chew 81 Mg CHEW DAILY Lisinopril 2.5 Mg Tab 2.5 Mg PO DAILY Zofran (Ondansetron HCl) 4 Mg Tab 4 Mg PO Q12HR PRN Active Ordered Medications Current Medications Medications (Trade) Dose Ordered Sig/Laure Route Start Time Stop Time Status Last Admin (NS Flush) 2 ml BID IV FLUSH 12/22/16 21:00 12/23/16 08:38 (NS Flush) 2 ml UNSCH PRN IV FLUSH 12/22/16 17:45 Furosemide 40 mg 40 mg BID@09,18 IVP 12/22/16 18:00 12/23/16 08:37 Ceftriaxone Sodium 2000 mg/ Sodium Chloride 100 ml @ 200 mls/hr Q24H IV 12/23/16 17:00 (Zithromax Inj/ NS 250 ml Inj) 250 ml @ 250 mls/hr Q24H IV 12/23/16 16:00 (Aspirin Chew) 81 mg DAILY CHEW 12/23/16 09:00 12/23/16 08:38 (Bactroban Nasal 2% Oint) 1 applic BID NASAL 12/22/16 21:00 12/23/16 08:38 Patient Own Medication PT OWN MED: CAPECITABINE 1,000 MG... XX PO 12/23/16 09:00 Hold Miscellaneous Information Patient in critical care unit? Ass... Q361D .XX 12/23/16 04:00 12/23/16 04:00 (Chlorhexidine 2% Cloth) 3 pack DAILY@04 TOPICAL 12/23/16 04:00 12/27/16 04:01 12/23/16 04:00 Chlorhexidine Gluconate 3 pack 3 pack UNSCH PRN TOPICAL 12/23/16 05:00 12/28/16 04:57 (Cardizem Inj/NS Inj) 125 ml @ 0 mls/hr TITRATE IV 12/23/16 11:00 (Cardizem) 30 mg Q6HR PO 12/23/16 12:00 Family History non contributory Social History drinks one glass of wine per night (Paige Batres) Physical Exam Vital Signs Vital Signs Date Time Temp Pulse Resp B/P Pulse Ox O2 Delivery O2 Flow Rate FiO2 12/23/16 11:00 78 20 93/63 93 12/23/16 11:00 75 12/23/16 10:00 106 30 96/70 93 12/23/16 09:00 77 12/23/16 09:00 90 23 104/86 90 12/23/16 08:00 97.9 86 31 110/79 93 12/23/16 07:27 95 Nasal Cannula 3.00 12/23/16 07:00 92 Nasal Cannula 1.50 12/23/16 07:00 80 12/23/16 07:00 84 26 119/79 95 12/23/16 06:00 96 31 119/80 93 12/23/16 05:30 78 22 119/78 93 12/23/16 05:00 75 12/23/16 05:00 80 21 120/84 93 12/23/16 04:30 82 26 105/76 92 12/23/16 04:00 98.3 84 22 125/81 92 12/23/16 03:30 88 22 118/81 90 12/23/16 03:00 80 21 130/77 92 12/23/16 03:00 82 12/23/16 02:30 90 25 133/77 88 12/23/16 02:00 80 22 115/79 90 12/23/16 01:30 76 19 117/75 91 12/23/16 01:00 81 12/23/16 01:00 92 28 131/89 91 12/23/16 00:30 84 24 123/78 90 12/23/16 00:05 90 Nasal Cannula 3.00 12/23/16 00:00 90 Nasal Cannula 3.00 12/23/16 00:00 40 12/23/16 00:00 98.5 86 25 111/67 96 12/22/16 23:30 86 18 106/75 94 12/22/16 23:00 86 20 112/76 95 12/22/16 23:00 88 12/22/16 22:30 92 29 111/80 95 12/22/16 22:00 94 22 110/91 91 12/22/16 21:30 96 31 115/80 93 12/22/16 21:24 93 40 12/22/16 21:00 86 13 90/64 94 12/22/16 20:06 98.0 96 27 131/83 91 12/22/16 20:00 102 12/22/16 20:00 93 Bi-Pap 40 12/22/16 20:00 40 12/22/16 20:00 94 25 131/83 94 12/22/16 19:34 94 40 12/22/16 17:50 96 50 12/22/16 17:49 110 18 96 12/22/16 17:33 95 Venturi Mask 50 12/22/16 16:30 91 99/66 97 12/22/16 16:27 105 20 143/106 99 BiPAP 50 12/22/16 16:15 100 50 12/22/16 14:41 129 16 157/115 97 Nasal Cannula 2 12/22/16 14:11 120 20 165/113 97 Nasal Cannula 2 12/22/16 14:11 97 Nasal Cannula 2 12/22/16 13:46 98.2 126 18 177/134 97 12/22/16 13:42 97 Nasal Cannula 2 12/22/16 13:41 18 97 Nasal Cannula 2 Physical Exam GENERAL: Elderly male sitting up in the chair, a bedside SKIN: Warm and dry. HEAD: Atraumatic. Normocephalic. EYES: Pupils equal and round. No scleral icterus. No injection or drainage. ENT: No nasal bleeding or discharge. Mucous membranes pink and moist. NECK: Trachea midline. CARDIOVASCULAR: afib, regular rate, systolic murmur RESPIRATORY: No accessory muscle use. GASTROINTESTINAL: Abdomen soft, non-tender, nondistended. Hepatic and splenic margins not palpable. MUSCULOSKELETAL: Extremities without clubbing, cyanosis. BLE edema 3+ NEUROLOGICAL: Awake and alert. No obvious cranial nerve deficits. Normal speech. PSYCHIATRIC: Appropriate mood and affect; insight and judgment normal. Laboratory Laboratory Tests Test 12/22/16 12/22/16 12/22/16 12/22/16 13:35 13:40 14:00 15:50 Prothrombin Time 11.4 Prothromb Time International 1.0 Ratio Activated Partial 24.5 Thromboplast Time Sodium Level 142 Potassium Level 3.8 Chloride Level 106 Carbon Dioxide Level 25.9 Anion Gap 10 Blood Urea Nitrogen 21 Creatinine 1.10 Estimat Glomerular Filtration 63 Rate Random Glucose 101 Calcium Level 8.8 Phosphorus Level 2.9 Magnesium Level 1.8 Total Bilirubin 1.1 Aspartate Amino Transf 63 (AST/SGOT) Alanine Aminotransferase 41 (ALT/SGPT) Alkaline Phosphatase 234 Total Creatine Kinase 125 Creatine Kinase MB 4.1 Troponin I 0.07 Total Protein 7.0 Albumin 3.3 Lipase 145 B-Type Natriuretic Peptide 919 Lactic Acid Level 1.5 Urine Color YELLOW Urine Turbidity CLEAR Urine pH 7.0 Urine Specific [place] 1.015 Urine Protein 30 Urine Glucose (UA) NEG Urine Ketones NEG Urine Occult Blood TRACE Urine Nitrite NEG Urine Bilirubin NEG Urine Leukocyte Esterase NEG Urine RBC 0-3 Urine WBC 0-2 Urine Squamous Epithelial 0-2 Cells Urine Mucus RARE Microscopic Urinalysis Comment CULT NOT INDICATED Test 12/22/16 12/22/16 12/22/16 12/22/16 16:13 16:52 18:30 19:50 White Blood Count 5.5 Red Blood Count 4.37 Hemoglobin 14.1 Hematocrit 43.8 Mean Corpuscular Volume 100.3 Mean Corpuscular Hemoglobin 32.4 Mean Corpuscular Hemoglobin 32.3 Concent Red Cell Distribution Width 20.3 Platelet Count 62 Mean Platelet Volume 8.1 Neutrophils (%) (Auto) 65.2 Lymphocytes (%) (Auto) 15.8 Monocytes (%) (Auto) 17.4 Eosinophils (%) (Auto) 0.8 Basophils (%) (Auto) 0.8 Neutrophils # (Auto) 3.6 Lymphocytes # (Auto) 0.9 Monocytes # (Auto) 1.0 Eosinophils # (Auto) 0.0 Basophils # (Auto) 0.0 CBC Comment AUTO DIFF Differential Comment AUTO DIFF CONFIRMED Platelet Estimate LOW Platelet Morphology Comment CLUMPED Blood Gas Puncture Site LT RADIAL Blood Gas Patient Temperature 98.6 Blood Gas HCO3 24 Blood Gas Base Excess -0.2 Blood Gas Oxygen Saturation 95 Arterial Blood pH 7.43 Arterial Blood Partial 36 Pressure CO2 Arterial Blood Partial 99 Pressure O2 Arterial Blood Oxygen Content 17.9 Arterial Blood 2.0 Carboxyhemoglobin Arterial Blood Methemoglobin 1.1 Blood Gas Hemoglobin 13.3 Oxygen Delivery Device BIPAP Blood Gas Ventilator Setting 15 IPAP/5 EPAP Blood Gas Inspired Oxygen 40 Troponin I 0.09 Nasal Screen MRSA (PCR) MRSA NOT DETECTED Test 12/22/16 12/23/16 23:11 04:33 Troponin I 0.08 Sodium Level 142 Potassium Level 3.3 Chloride Level 104 Carbon Dioxide Level 30.0 Anion Gap 8 Blood Urea Nitrogen 16 Creatinine 0.89 Estimat Glomerular Filtration 80 Rate Random Glucose 112 Calcium Level 8.3 Date/Time Procedure Status Source Growth 12/23/16 08:15 Gram Stain Received Sputum Expectorated Sputum Pending 12/23/16 08:15 Sputum Culture Received Sputum Expectorated Sputum Pending 12/22/16 13:40 Aerobic Blood Culture - Preliminary Resulted Blood Peripheral NO GROWTH IN 1 DAY 12/22/16 13:40 Anaerobic Blood Culture - Preliminary Resulted Blood Peripheral NO GROWTH IN 1 DAY (Paige Batres) Result Diagram: 12/22/16 1613 12/23/16 0433 Imaging Last 72 hours Impressions Chest X-Ray 12/22/16 1357 Signed Impressions: Service Date/Time: Thursday, December 22, 2016 14:18 - CONCLUSION: 1. Pulmonary venous congestion. 2. Infiltrate and effusion in the left lung base. 3. Cardiomegaly. Amor Shaikh MD (Paige Batres) Assessment and Plan Assessment and Plan ASSESSMENT Chronic atrial fibrillation, admitted with atrial fibrillation with RVR. history of GI bleed, plts currently 62. Not a candidate for AC Acute exacerbation of CHF. Last echo EF 50%. Pending echo HTN Aortic stenosis PLAN: Continue diuresis IV, transition to PO once patient's fluid status improves. Will need to go home with daily lasix and K+ Transition from cardizem IV to PO. Pending cardiac echo The patient will need to follow up with Dr Hilario in the office after discharge Patient seen and evaluated by Dr. Sahu who is covering for Dr. Hilario. (Paige Batres) Assessment and Plan The exam, history, and the medical decision-making described in the above note were completed with the assistance of the mid-level provider. I reviewed and agree with the findings presented. I attest that I had a [id number] encounter with the patient on the same day, and personally performed and documented my assessment and findings in the medical record. Will plan to treat fluid overload and Heart rate. D/c when hr stable and chf better. (Eddi Sahu MD) Paige Batres Dec 23, 2016 12:19 Eddi Sahu MD Dec 23, 2016 17:46
[2016-12-23] MEDS: DILTIAZEM HCL 30 MG TAB PO SCH ×3 (12:27→23:18)
--- NOTE | 2016-12-23 17:10 | PD.ONC.PN ---
Subjective Subjective Remarks Feeling better. No CP. SOB improved. No bleeding. Objective Data Date Time Temp Pulse Resp B/P Pulse Ox O2 Delivery O2 Flow Rate FiO2 12/23/16 16:00 97.7 84 22 112/91 95 12/23/16 15:00 92 24 119/70 95 12/23/16 15:00 90 12/23/16 14:00 86 26 95/64 95 12/23/16 13:00 82 22 93/65 93 12/23/16 13:00 82 12/23/16 12:30 86 27 102/59 92 12/23/16 12:00 98.1 80 24 84/61 94 12/23/16 11:00 78 20 93/63 93 12/23/16 11:00 75 12/23/16 10:00 106 30 96/70 93 12/23/16 09:00 77 12/23/16 09:00 90 23 104/86 90 12/23/16 08:00 97.9 86 31 110/79 93 12/23/16 07:27 95 Nasal Cannula 3.00 12/23/16 07:00 92 Nasal Cannula 1.50 12/23/16 07:00 80 12/23/16 07:00 84 26 119/79 95 12/23/16 06:00 96 31 119/80 93 12/23/16 05:30 78 22 119/78 93 12/23/16 05:00 75 12/23/16 05:00 80 21 120/84 93 12/23/16 04:30 82 26 105/76 92 12/23/16 04:00 98.3 84 22 125/81 92 12/23/16 03:30 88 22 118/81 90 12/23/16 03:00 80 21 130/77 92 12/23/16 03:00 82 12/23/16 02:30 90 25 133/77 88 12/23/16 02:00 80 22 115/79 90 12/23/16 01:30 76 19 117/75 91 12/23/16 01:00 81 12/23/16 01:00 92 28 131/89 91 12/23/16 00:30 84 24 123/78 90 12/23/16 00:05 90 Nasal Cannula 3.00 12/23/16 00:00 90 Nasal Cannula 3.00 12/23/16 00:00 40 12/23/16 00:00 98.5 86 25 111/67 96 12/22/16 23:30 86 18 106/75 94 12/22/16 23:00 86 20 112/76 95 12/22/16 23:00 88 12/22/16 22:30 92 29 111/80 95 12/22/16 22:00 94 22 110/91 91 12/22/16 21:30 96 31 115/80 93 12/22/16 21:24 93 40 12/22/16 21:00 86 13 90/64 94 12/22/16 20:06 98.0 96 27 131/83 91 12/22/16 20:00 102 12/22/16 20:00 93 Bi-Pap 40 12/22/16 20:00 40 12/22/16 20:00 94 25 131/83 94 12/22/16 19:34 94 40 12/22/16 17:50 96 50 12/22/16 17:49 110 18 96 12/22/16 17:33 95 Venturi Mask 50 12/23/16 12/23/16 12/23/16 07:00 15:00 23:00 Intake Total 156 ml 352 ml Output Total 1675 ml 900 ml Balance -1519 ml -548 ml Result Diagram: 12/22/16 1613 12/23/16 0433 Laboratory Results Laboratory Tests Test 12/22/16 12/22/16 12/22/16 12/23/16 18:30 19:50 23:11 04:33 Troponin I 0.09 NG/ML 0.08 NG/ML Nasal Screen MRSA (PCR) MRSA NOT DETECTED Sodium Level 142 MEQ/L Potassium Level 3.3 MEQ/L Chloride Level 104 MEQ/L Carbon Dioxide Level 30.0 MEQ/L Anion Gap 8 MEQ/L Blood Urea Nitrogen 16 MG/DL Creatinine 0.89 MG/DL Estimat Glomerular Filtration 80 ML/MIN Rate Random Glucose 112 MG/DL Calcium Level 8.3 MG/DL Culture Results Microbiology Date/Time Procedure Status Source Growth 12/22/16 13:35 Aerobic Blood Culture - Preliminary Resulted Blood Peripheral NO GROWTH IN 1 DAY 12/22/16 13:35 Anaerobic Blood Culture - Preliminary Resulted Blood Peripheral NO GROWTH IN 1 DAY 12/22/16 13:40 Aerobic Blood Culture - Preliminary Resulted Blood Peripheral NO GROWTH IN 1 DAY 12/22/16 13:40 Anaerobic Blood Culture - Preliminary Resulted Blood Peripheral NO GROWTH IN 1 DAY 12/23/16 08:15 Gram Stain Received Sputum Expectorated Sputum Pending 12/23/16 08:15 Sputum Culture Received Sputum Expectorated Sputum Pending Administered Medications Medications (Trade) Dose Ordered Sig/Laure Route PRN Reason Start Time Stop Time Status Last Admin Dose Admin Sodium Chloride (NS Flush) 2 ml BID IV FLUSH 12/22/16 21:00 12/23/16 08:38 Furosemide (Lasix Inj) 40 mg BID@09,18 IVP 12/22/16 18:00 12/23/16 08:37 Aspirin (Aspirin Chew) 81 mg DAILY CHEW 12/23/16 09:00 12/23/16 08:38 Mupirocin (Bactroban Nasal 2% Oint) 1 applic BID NASAL 12/22/16 21:00 12/23/16 08:38 Miscellaneous Information Patient in critical care unit? Ass... Q361D .XX 12/23/16 04:00 12/23/16 04:00 Chlorhexidine Gluconate (Chlorhexidine 2% Cloth) 3 pack DAILY@04 TOPICAL 12/23/16 04:00 12/27/16 04:01 12/23/16 04:00 Diltiazem HCl (Cardizem) 30 mg Q6HR PO 12/23/16 12:00 12/23/16 12:27 Objective Remarks GENERAL: Well-nourished, well-developed patient. SKIN: Warm and dry. HEAD: Normocephalic. EYES: No scleral icterus. No injection or drainage. NECK: Supple, trachea midline. No JVD or lymphadenopathy. LYMPHATIC: No adenopathy. CARDIOVASCULAR: Irreg Irreg S1,S2, +murmur RESPIRATORY: Breath sounds basilar crackles GASTROINTESTINAL: Abdomen soft, non-tender, nondistended. EXTREMITIES: No cyanosis, BLE 1 + edema. MUSCULOSKELETAL: Adequate muscle tone. NEUROLOGICAL: No obvious focal deficit. Awake, alert, and oriented x3. PSYCHIATRIC: Appropriate mood and affect; insight and judgment normal. Assessment/Plan Problem List: (1) A-fib Status: Chronic Plan: Now rate controlled. 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 Currently on Oxaliplatin/Xeloda. Last Oxaliplatin 6 /22. Just completed Xeloda 12/20. Last CT showed improvement. (3) Congestive heart failure Status: Acute Plan: Improved with diuresis. (4) Thrombocytopenia Status: Acute Plan: Likely due to recent chemotherapy and possible consumptive process. No bleeding noted. Plan 1. Continue to monitor CBC 2. Hold chemotherapy for now. 3. Continue supportive care. 4. Discussed with pt and his family 5. F/u with after d/c. Tony Verma MD Dec 23, 2016 17:10
[2016-12-23] MEDS: AZITHROMYCIN INJ 500 MG in SODIUM CHLOR 0.9% 250 ML INJ 250 ML IV SCH (17:49)
[2016-12-23] MEDS: cefTRIAXone INJ 2,000 MG in SODIUM CHLORIDE 0.9% INJ 100 ML IV SCH (17:50)
--- NOTE | 2016-12-23 18:03 | ECHRPT ---
Indication: Heart failure, unspecified CONCLUSIONS The left ventricular systolic function is [id number] reduced with an estimated ejection fra ction in the range of 35-40%. Diffuse hypokinesis. Mild concentric left ventricular hypertrophy. The left atrial size is mildly dilated. Mild mitral valve regurgitation. Moderate mitral annular calcification. Moderate thickening of the aortic valve leaflets. Diffuse calcification of the aortic valve. Severe aortic valve stenosis with mean transvalvular gradient of 45 mm Hg. There is trace tricuspid valve regurgitation. The estimated pulmonary arterial pressure is 35 mmHg. There is a small pericardial effusion present. There is no conclusive echocardiographic evidence for tamponade. There is no right ventricular diastolic collapse or right atrial invagination, although mitral E wave velocities may vary with respiration more than 25%. Clinical correlation is recommended. A left sided pleural effusion is present. BP: / HR: 90 Rhythm: Atrial fibrillation MEASUREMENTS (Male / Female) Normal Values Technical Quality:Fair 2D ECHO LV Diastolic Diameter PLAX 5.7 cm 4.2 - 5.9 / 3.9 - 5.3 cm LV Systolic Diameter PLAX 4.8 cm IVS Diastolic Thickness 1.2 cm 0.6 - 1.0 / 0.6 - 0.9 cm LVPW Diastolic Thickness 1.2 cm 0.6 - 1.0 / 0.6 - 0.9 cm LV Relative Wall Thickness 0.4 RV Internal Dim ED PLAX 3.5 cm LVOT Diameter 2.2 cm M-MODE Aortic Root Diameter MM 2.4 cm LA Systolic Diameter MM 6.2 cm LA Ao Ratio MM 2.6 DOPPLER AV Peak Velocity 343.3 cm/s AV Peak Gradient 47.2 mmHg AV Mean Gradient 44.7 mmHg AV Velocity Time Integral 85.5 cm LVOT Peak Velocity 83.4 cm/s LVOT Peak Gradient 2.8 mmHg AV Area Cont Eq pk 0.9 cm MR Peak Velocity 527.0 cm/s MR Peak Gradient 111.1 mmHg TR Peak Velocity 251.0 cm/s TR Peak Gradient 25.2 mmHg PV Peak Velocity 212.0 cm/s PV Peak Gradient 18.0 mmHg FINDINGS LEFT VENTRICLE The left ventricular systolic function is [id number]-[id number] reduced with an estimated ejection fra ction in the range of 35-40%. Diffuse hypokinesis. Mild concentric left ventricular hypertrophy. RIGHT VENTRICLE Normal right ventricular size and systolic function. LEFT ATRIUM The left atrial size is mildly dilated. RIGHT ATRIUM The right atrial size is normal. ATRIAL SEPTUM Normal atrial septal thickness without atrial level shunting by limited color doppler interrogation. AORTA The aortic root and proximal ascending aorta are normal in size on limited imaging. MITRAL VALVE Mild mitral valve regurgitation. Moderate mitral annular calcification. AORTIC VALVE Moderate thickening of the aortic valve leaflets. Diffuse calcification of the aortic valve. Severe aortic valve stenosis with mean transvalvular gradient of 45 mm Hg. TRICUSPID VALVE There is trace tricuspid valve regurgitation. The estimated pulmonary arterial pressure is 35 mmHg. PULMONARY VALVE The pulmonary valve is not well visualized. VESSELS The inferior vena cava is normal in size. PERICARDIUM There is a small pericardial effusion present. There is no conclusive echocardiographic evidence for tamponade. There is no right ventricular diastolic collapse or right atrial invagination, although mitral E wave velocities may vary with respiration more than 25%. Clinical correlation is recommended. A left sided pleural effusion is present. Suraj Olson MD (Electronically Signed) Final Date:23 December 2016 18:02
--- NOTE | 2016-12-23 18:13 | EKG ---
Date Performed: 12/22/2016 Time Performed: 13:26:51 PTAGE: 89 years EKG: ATRIAL FIBRILLATION WITH RAPID VENTRICULAR RESPONSE WITH ABERRANT CONDUCTION OR VENTRICULAR PREMATURE COMPLEXES NONSPECIFIC T-WAVE ABNORMALITY ABNORMAL RHYTHM ECG INTERPRETATION BASED ON A DEF MELODIE AGE OF 40 YEARS PREVIOUS TRACING : 04/23/2016 15.44 Compared to prior tracing no significant change DOCTOR: Xoimara Anglin Interpretating Date/Time 12/23/2016 18:11:42
--- NOTE | 2016-12-23 23:33 | MB ---
cc: JACQUELYN PALMA DATE OF CONSULTATION 12/22/16 DATE OF 1925 The patient was seen in [facility]. REASON FOR CONSULTATION Patient with a history of metastatic gastric adenocarcinoma who was admitted to the hospital with dyspnea. CHIEF COMPLAINT Dyspnea. HISTORY OF PRESENT ILLNESS Mr. 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 He is being treated with Xeloda and oxaliplatin with reduced dose to account for his age and comorbidity. He has had excellent response to the treatment and most recent scans do not show any evidence of disease. The patient has had radiation treatment to the gastric mass. From his malignancy standpoint he is doing very well. He was presented to the emergency department with acute dyspnea and chest heaviness. The patient has a history of a-fib and he is on a beta-antoine. He has not been on anticoagulation due to his past history of GI bleeding. On admission the patient was found to be in a-fib with RVR. Chest x-ray also showed a possible pneumonia. He had pulmonary venous congestion and lower extremity edema. His BMP was elevated in the 900s. These findings are consistent with acute congestive heart failure. The patient was started on Cardizem drip with control of his heart rate in the 90s. He was placed on BiPap and diuresis was initiated. He is significantly feeling better. He has not had any fevers or chills. No night sweats. He has not had any headaches, no blurry vision. He denies any chest pain. No abdominal pain. NO diarrhea or constipation. No lower extremity edema or pain. His ECOG performance status is 1. REVIEW OF SYSTEMS A comprehensive 14-point review of systems was completed which is negative except as described in the HPI. PAST MEDICAL HISTORY 1. Stage IV gastric adenocarcinoma. 2. Hypertension. 3. Atrial fibrillation. 4. Gastroesophageal reflux disease. 5. Thrombocytopenia. 6. Anemia, history of aortic stenosis. 7. History of prostate cancer. 8. His of GI bleeding. PAST SURGICAL HISTORY 1. Port placement. 2. Right eye cataract surgery. 3. Endoscopy and colonoscopy. 4. Cholecystectomy. 5. Appendectomy. 6. Left total hip replacement. 7. Right knee replacement. 8. Prostatectomy. MEDICATIONS He is on: 1. Capecitabine 500 milligrams 1 tablet p.o. b.i.d. 7 days, on 7 days off. 2. The patient is also receiving oxaliplatin treatment with reduced dose. 3. Ventolin HFA 18 grams, INH 90 micrograms 2 puffs, INH 4-6 hours. 4. Aspirin 81 milligrams daily. 5. Lisinopril 2.5 milligrams p.o. daily. 6. Zofran 4 milligrams 1 tablet p.o. q.12 hours. ALLERGIES Allergic to aspirin and ibuprofen. FAMILY HISTORY The family history was reviewed and is noncontributory to this admission. SOCIAL HISTORY He is , lives with his . He quit smoking 40 years ago. He rarely drinks alcohol. No illicit drug use. PHYSICAL EXAMINATION VITAL SIGNS: Blood pressure is 114/82, pulse is in the 80s, temperature is 97.8, heart rate is in the 90s. General: Well-developed, well-nourished elderly male who is in acute distress. He has a BiPap in place. HEENT: Pupils are equal, round, reactive to light. EOMI. No oral thrush. No oral lesions. NECK: Neck is supple. No JVD, no bruits and no lymphadenopathy. CHEST: His chest has bilateral rales heard in lower lobes, some wheezing. ABDOMEN: Abdomen is soft, nontender, nondistended. Bowel sounds are present. EXTREMITIES: 1+ bilateral lower extremity edema. NEUROLOGIC: No focal deficits. PSYCHIATRIC: Mood and affect is appropriate. LABORATORY DATA WBC 5.5, hemoglobin 14.1, platelet count is 62. Serum chemistries show sodium of 142, potassium 3.3, chloride 104, CO2 30, BUN 16, creatinine 0.89, GFR is 80, glucose is 112, calcium is 8.3. Troponins are moderately elevated at 0.08. BNP is 919. Coags show PT of 11.4, INR 1, PTT 24.5. IMAGING STUDIES Chest x-ray was reviewed in the EMR, this shows pulmonary venous congestion. Also there is an infiltrate or effusion in the left lower lung. There is mild cardiomegaly. ASSESSMENT/PLAN This is an 89-year-old male with a history of metastatic gastric adenocarcinoma, history of a-fib, GI bleeding, thrombocytopenia who was admitted to the hospital with acute shortness of breath. 1. Acute congestive heart failure likely precipitated by a-fib with RVR. He may have underlying pneumonia as well based on the chest x-ray. I agree with antibiotics, rate control with Cardizem and diuresis. Cardiology has been consulted. He is currently on BiPAP. Obtain 2 D-echo. 2. Thrombocytopenia, this is secondary to chemotherapy, possibly some consumption. Will continue to monitor. There is no evidence of any bleeding. 3. Metastatic gastric adenocarcinoma, there is no evidence of any disease based on the most recent imaging. The patient is being treated with Xeloda and oxaliplatin. We will hold Xeloda while inpatient. 4. History of a-fib, from hematology perspective as long as his platelet count is greater than 60,000 we can anticoagulate him if cardiology thinks that this is necessary. I would recommend starting him on heparin. He had GI bleeding from his tumor which was treated with radiation treatments approximately 8 months and he has not had any bleeding and his Hb has remained stable. There is no evidence of residual gastric mass and he can be started on anticoagulation with heparin. We can monitor his hemoglobin while inpatient. If this remains stable we can transition him to Lovenox injections outpatient. I will follow up out-patient and eventually transition this patient to an oral agent such as Eliquis or Xarelto. Thank you for allowing me to participate in the care of this patient. I will continue to follow this patient along. MD MITCH Curtis/BRONSON /10:48 PM /11:08 PM SHANNON
[2016-12-24] VITALS (31 sets, daily range): BP systolic 77–150; BP diastolic 62–129; PULSE 81–118; RESP 19–33; TEMP 97.9–98.7; O2SAT 85–97
[2016-12-24] MEDS: CHLORHEXIDINE GLUCONATE 2 % 1 PACK (2 CLOTHS)(taper/protocol) TOPICAL SCH (04:00)
[2016-12-24] MEDS: DILTIAZEM HCL 30 MG TAB PO SCH (06:25)
[2016-12-24 06:34] LABS: AUTOMATED NEUTROPHIL # 4.4 TH/MM3 (1.8-7.7); BASOPHIL % 0.7 % (0.0-2.0); EOSINOPHIL # 0.1 TH/MM3 (0-0.4); HEMATOCRIT 37.4 % (39.0-51.0); LYMPH % 8.1 % (9.0-44.0); LYMPHOCYTE # 0.5 TH/MM3 (1.0-4.8); MEAN CELL VOLUME 99.6 FL (80.0-100.0); MEAN CORPUSCULAR HEMOGLOBIN 34.4 PG (27.0-34.0); MEAN CORPUSCULAR HGB CONC 34.5 % (32.0-36.0); MONO % 14.6 % (0.0-8.0); NEUT % 75.6 % (16.0-70.0); PLATELET COUNT 63 TH/MM3 (150-450); RED BLOOD COUNT 3.75 MIL/MM3 (4.50-5.90); RED CELL DISTRIBUTION WIDTH 20.4 % (11.6-17.2); WHITE BLOOD COUNT 5.9 TH/MM3 (4.0-11.0)
[2016-12-24 06:41] LABS: HEMO FLAGS AUTO DIFF
[2016-12-24 06:47] LABS: POTASSIUM 3.3 MEQ/L (3.5-5.1)
[2016-12-24 06:51] LABS: BICARBONATE 29.3 MEQ/L (21.0-32.0); MAGNESIUM 1.5 MG/DL (1.5-2.5)
[2016-12-24 07:06] LABS: OVALOCYTES 1+ (NORMAL); PLATELET ESTIMATE SMEAR LOW (NORMAL); PLATELET MORPHOLOGY NORMAL (NORMAL); SCAN/DIFF AUTO DIFF CONFIRMED; TARGET CELLS 1+ (NORMAL)
[2016-12-24] MEDS: RESP: ALBUTEROL 2.5 MG/IPRATROPIUM 0.5 MG NEB (SCH) NEB ×3 (08:19→19:51)
--- NOTE | 2016-12-24 10:04 | RADRPT ---
EXAM DATE/TIME: 12/24/2016 09:51 [facility] COMPARISON: CHEST SINGLE AP, December 22, 2016, 14:18. INDICATIONS : Short of breath. MEDICAL HISTORY : Carcinoma, prostatic. Afib SURGICAL HISTORY : infusaport ENCOUNTER: Subsequent ACUITY: 2 days PAIN SCORE: 0/10 LOCATION: Bilateral chest FINDINGS: [id number] is in good position. The heart is enlarged. Mild interstitial edema is present. Mini mal partial changes are present in the left base. The portion of the bony skeleton visualized is unre markable. CONCLUSION: Mild interstitial venous suggesting congestive failure. Neri Cervantes MD FACR on December 24, 2016 at 10:02 Board Certified Radiologist. This report was verified electronically.
[2016-12-24] MEDS: ASPIRIN 81 MG CHEW TAB CHEW SCH (10:28)
[2016-12-24] MEDS: CARVEDILOL 6.25 MG TAB PO SCH ×2 (10:28→21:18)
[2016-12-24] MEDS: FUROSEMIDE 40 MG/4 ML VIAL IVP SCH ×2 (10:29→17:08)
[2016-12-24] MEDS: MUPIROCIN 2% OINT 1 APPLIC/GM SYR NASAL SCH (10:29)
[2016-12-24] MEDS: SODIUM CHLORIDE 0.9% FLUSH 10 ML FLUSH IV FLUSH SCH ×2 (10:30→21:18)
[2016-12-24] MEDS: DILTIAZEM HCL 60 MG TAB PO SCH ×2 (13:00→17:08)
--- NOTE | 2016-12-24 13:35 | HHI.PR ---
Subjective Remarks The patient was seen earlier today. He is in the chair, appear with sob. No wheezing. His legs are more swollen . No n/v/d/c. patient denies any fever or chills. Patient is requiring 5L by NC at this time. Family at bedside, family will bring patient Cpap machine from home to use at night. Objective Vitals Vital Signs Date Time Temp Pulse Resp B/P Pulse Ox O2 Delivery O2 Flow Rate FiO2 12/24/16 13:00 88 26 86/66 96 12/24/16 13:00 83 12/24/16 12:00 98.4 88 21 77/62 95 12/24/16 11:00 108 28 150/129 94 12/24/16 11:00 86 12/24/16 10:00 110 25 129/85 94 12/24/16 09:00 110 30 131/82 96 12/24/16 09:00 110 12/24/16 08:19 97 Nasal Cannula 5.00 12/24/16 08:00 115 20 139/99 96 12/24/16 07:00 118 12/24/16 07:00 98.1 118 20 119/86 94 12/24/16 07:00 96 Nasal Cannula 5.00 12/24/16 06:28 Nasal Cannula 2.00 12/24/16 06:00 108 28 129/92 91 12/24/16 05:00 118 22 126/97 92 12/24/16 05:00 107 12/24/16 04:00 97.9 114 23 140/88 91 12/24/16 03:00 108 21 144/96 94 12/24/16 03:00 101 12/24/16 02:00 108 26 115/78 12/24/16 01:00 106 12/24/16 01:00 108 25 115/81 12/24/16 00:00 98.3 108 19 131/93 12/23/16 23:00 104 35 123/83 92 12/23/16 23:00 102 12/23/16 22:00 104 22 112/83 91 12/23/16 21:00 108 12/23/16 20:00 98.1 100 16 126/82 95 12/23/16 19:57 96 21 12/23/16 19:47 107 12/23/16 19:00 94 Room Air 12/23/16 18:00 88 27 114/82 94 12/23/16 17:00 90 28 122/91 94 12/23/16 17:00 88 12/23/16 16:00 97.7 84 22 112/91 95 12/23/16 15:00 92 24 119/70 95 12/23/16 15:00 90 12/23/16 14:00 86 26 95/64 95 I/O 12/23/16 12/23/16 12/23/16 12/24/16 12/24/16 12/24/16 06:59 14:59 22:59 06:59 14:59 22:59 Intake Total 156 ml 352 ml 500 ml 200 ml Output Total 1675 ml 900 ml 600 ml 900 ml Balance -1519 ml -548 ml -100 ml -700 ml Intake Oral 60 ml 320 ml 250 ml 200 ml IV Total 96 ml 32 ml 250 ml Output Urine Total 1675 ml 900 ml 600 ml 900 ml # Voids 3 3 # Bowel Movements 0 Result Diagram: 12/24/16 0613 12/24/16 0613 Imaging Last Impressions Chest X-Ray 12/24/16 0000 Signed Impressions: Service Date/Time: Saturday, December 24, 2016 09:51 - CONCLUSION: Mild interstitial venous suggesting congestive failure. Neri Cervantes MD FACR Objective Remarks GENERAL: Well-developed, well-nourished, in respiratory distress on BiPAP. alert and orientated CARDIAC: Regular rhythm, regular rate. S1/S2 are heard. No murmurs gallops or rubs. LUNGS: Crackles noted bilaterally. No wheeze, rhonchi or rales. No use of accessory muscles on inspiration or expiration. ABDOMEN: Soft, nontender. Nondistended. Bowel sounds heard in all 4 quadrants. No organomegaly or masses. Negative rebound, negative guarding EXTREMITIES: 3+ pitting edema noted in bilateral lower extremities, pulses are equal bilaterally. No cyanosis or clubbing NEUROLOGY: Mood and affect appear appropriate. Cranial nerves II through XII grossly intact. Muscle strength 5/5 in upper and lower extremities bilaterally. Deep tendon reflexes are 2+ in upper and lower extremities bilaterally. A/P Problem List: (1) Severe sepsis ICD Code: A41.9 Status: Acute (2) Acute respiratory failure ICD Code: J96.00 Status: Acute (3) Acute congestive heart failure ICD Code: I50.9 Status: Acute (4) Elevated troponin ICD Code: R74.8 Status: Acute (5) Atrial fibrillation with rapid ventricular response ICD Code: I48.91 Status: Acute (6) Pneumonia involving left lung ICD Code: J18.9 Status: Acute (7) Thrombocytopenia ICD Code: D69.6 Status: Acute Assessment and Plan (1) Severe sepsis. Resolving. ICD Code: A41.9 Status: Acute Plan: Patient meets criteria with tachycardia, tachypnea, community-acquired pneumonia, respiratory failure on admission Patient started on empirical antibiotics to include Rocephin and Zithromax Continue follow blood cultures, NTD Sputum cultures pending (2) Acute respiratory failure. Resolving Patient with h/o sleep apnea on CPAP at night . Patient to use his CPAP at night ICD Code: J96.00 Status: Acute Plan: Patient with acute respiratory failure with underlying congestive heart failure, pneumonia, elevated troponin Arterial blood gas shows improvement on BiPAP Continue BiPAP at night, continue weaning FiO2 to maintain O2 sats greater than 92%. Currently satting well on 5L NC. Chest x-ray on admission shows venous congestion and infiltrate and effusion of the left lung base. Repeat CXR 12/24 not much improvement. 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 No chest pain. (5) Atrial fibrillation with rapid ventricular response ICD Code: I48.91 Status: Acute Plan: Patient does have chronic atrial fibrillation, unable to anticoagulate secondary to recent GI bleed and thrombocytopenia Continue Cardizem IV, continue to wean to maintain heart rate less than 100. Transition to PO cardizem. Turn off cardizem drip if HRsustained < 90 and turn on drip if HR sustained > 110 Cardiology consulted for recommendations (6) Pneumonia involving left lung ICD Code: J18.9 Status: Acute Plan: Chest x-ray with left lung pneumonia, likely community-acquired infiltrate, most recent hospitalization was 8 months ago Continue antibiotics for treatment required pneumonias include Rocephin and Zithromax Sputum culture pending (7) Thrombocytopenia ICD Code: D69.6 Status: Acute Plan: Appears patient does have history of pancytopenia, Continue monitor platelet count. Consult shoe repairer apprentice for monitoring recommendations Code Status No code, this was confirmed by patient Discussed Condition With Discussed with the patient.nurse, family at bedside DC plan: Pending improvement,. not much improvement, not ready for DC. Problem Qualifiers (1) Acute respiratory failure: Qualified Code: J96.00 - Acute respiratory failure, unspecified whether with hypoxia or hypercapnia (2) Acute congestive heart failure: Qualified Code: I50.9 - Acute congestive heart failure, unspecified congestive heart failure type (3) Pneumonia involving left lung: Qualified Code: J18.1 - Pneumonia of left lower lobe due to infectious organism Sarahy García MD Dec 24, 2016 13:35
[2016-12-24] MEDS ORDERED: POTASSIUM CHLORIDE 10 MEQ CONTROLLED RELEASE TAB PO ONE (13:45)
[2016-12-24] MEDS: cefTRIAXone INJ 2,000 MG in SODIUM CHLORIDE 0.9% INJ 100 ML IV SCH (17:09)
[2016-12-24] MEDS: AZITHROMYCIN INJ 500 MG in SODIUM CHLOR 0.9% 250 ML INJ 250 ML IV SCH (17:10)
[2016-12-25] VITALS (21 sets, daily range): BP systolic 84–120; BP diastolic 58–99; PULSE 78–104; RESP 14–39; TEMP 97.6–98.1; O2SAT 85–97
[2016-12-25] MEDS: CHLORHEXIDINE GLUCONATE 2 % 1 PACK (2 CLOTHS)(taper/protocol) TOPICAL SCH (04:00)
[2016-12-25] MEDS: DILTIAZEM HCL 60 MG TAB PO SCH ×3 (06:00→12:57)
[2016-12-25] MEDS: RESP: ALBUTEROL 2.5 MG/IPRATROPIUM 0.5 MG NEB (SCH) NEB (07:48)
[2016-12-25] MEDS: CARVEDILOL 6.25 MG TAB PO SCH (08:27)
[2016-12-25] MEDS: ASPIRIN 81 MG CHEW TAB CHEW SCH (08:28)
[2016-12-25] MEDS: SODIUM CHLORIDE 0.9% FLUSH 10 ML FLUSH IV FLUSH SCH (08:29)
--- NOTE | 2016-12-25 09:58 | HHI.DS ---
Discharge Summary Admission Date Dec 22, 2016 at 15:18 Discharge Date: Dec 25, 2016 Admitting Diagnosis afib with rvr, pneumonia (1) Atrial fibrillation with rapid ventricular response ICD Code: I48.91 Diagnosis: Principal (2) Severe sepsis ICD Code: A41.9 Diagnosis: Principal (3) Acute respiratory failure ICD Code: J96.00 Diagnosis: Principal (4) Acute congestive heart failure ICD Code: I50.9 Diagnosis: Principal (5) Elevated troponin ICD Code: R74.8 Diagnosis: Secondary (6) Thrombocytopenia ICD Code: D69.6 Diagnosis: Secondary Procedures none Brief History - From Admission Written by Raffi Fairbanks, acting as scribe for Dr. Ridley on 12/22/16 at 17:41. 89 year-old male with rather complex medical history with hypertension , chronic atrial fibrillation not on anticoagulation due to recent GI bleed, recent gastric cancer stage IV, history of prostate cancer, obstructive sleep apnea who presented to hospital because of shortness of breath and dyspnea. Patient is in respiratory failure at this time and is with BiPAP in the emergency department. Most information was taken from family at bedside, patient did participate in difficult responses. As indicated that patient has had increased shortness of breath and dyspnea over the last 2 weeks which progressively got worse where he cannot lay down over the last few days. He was able lay flat prior to this, however he is unable to indicate only sit up when he sleeps. Patient has had increased lower extremity edema. 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 carter, does not indicate that he has been seen by him recently. Patient denies any chest pain, nausea, vomiting, lightheadedness, dizziness. Patient had workup done emergency department and on presentation had atrial fibrillation with RVR. Patient was started on Cardizem IV for rate control. Patient progressively got short of breath and required BiPAP placement with settings 15/5/40%. Blood gas was done at that time which does show pH 7.43, PCO2 36, PO2 99, bicarbonate 24, O2 saturation 95. The family and patient at bedside. They indicate that he does have a living will, patient indicates he does not want to be intubated and wants to be a no code at this time. CBC/BMP: 12/24/16 0613 12/24/16 0613 Significant Findings Laboratory Tests Test 12/22/16 12/22/16 12/22/16 12/22/16 13:35 13:40 15:50 16:13 Blood Urea Nitrogen 21 MG/DL (7-18) Estimat Glomerular Filtration 63 ML/MIN (>89) Rate Total Bilirubin 1.1 MG/DL (0.2-1.0) Aspartate Amino Transf 63 U/L (15-37) (AST/SGOT) Alkaline Phosphatase 234 U/L (45-117) Creatine Kinase MB 4.1 NG/ML (0.5-3.6) Troponin I 0.07 NG/ML (0.02-0.05) Albumin 3.3 GM/DL (3.4-5.0) B-Type Natriuretic Peptide 919 PG/ML (0-100) Urine Protein 30 mg/dL (NEG-TRACE) Urine Occult Blood TRACE (NEG) Red Blood Count 4.37 MIL/MM3 (4.50-5.90) Mean Corpuscular Volume 100.3 FL (80.0-100.0) Red Cell Distribution Width 20.3 % (11.6-17.2) Platelet Count 62 TH/MM3 (150-450) Monocytes (%) (Auto) 17.4 % (0.0-8.0) Lymphocytes # (Auto) 0.9 TH/MM3 (1.0-4.8) Monocytes # (Auto) 1.0 TH/MM3 (0-0.9) Platelet Estimate LOW (NORMAL) Platelet Morphology Comment CLUMPED (NORMAL) Test 12/22/16 12/22/16 12/22/16 12/23/16 16:52 18:30 23:11 04:33 Arterial Blood pH 7.43 (7.380-7.420) Arterial Blood Partial 36 mmHG (38-42) Pressure CO2 Troponin I 0.09 NG/ML 0.08 NG/ML (0.02-0.05) (0.02-0.05) Potassium Level 3.3 MEQ/L (3.5-5.1) Estimat Glomerular Filtration 80 ML/MIN (>89) Rate Random Glucose 112 MG/DL (74-106) Calcium Level 8.3 MG/DL (8.5-10.1) Test 12/24/16 06:13 Red Blood Count 3.75 MIL/MM3 (4.50-5.90) Hemoglobin 12.9 GM/DL (13.0-17.0) Hematocrit 37.4 % (39.0-51.0) Mean Corpuscular Hemoglobin 34.4 PG (27.0-34.0) Red Cell Distribution Width 20.4 % (11.6-17.2) Platelet Count 63 TH/MM3 (150-450) Neutrophils (%) (Auto) 75.6 % (16.0-70.0) Lymphocytes (%) (Auto) 8.1 % (9.0-44.0) Monocytes (%) (Auto) 14.6 % (0.0-8.0) Lymphocytes # (Auto) 0.5 TH/MM3 (1.0-4.8) Platelet Estimate LOW (NORMAL) Target Cells 1+ (NORMAL) Ovalocytes 1+ (NORMAL) Potassium Level 3.3 MEQ/L (3.5-5.1) Blood Urea Nitrogen 21 MG/DL (7-18) Estimat Glomerular Filtration 83 ML/MIN (>89) Rate Random Glucose 114 MG/DL (74-106) Imaging Last Impressions Chest X-Ray 12/24/16 0000 Signed Impressions: Service Date/Time: Saturday, December 24, 2016 09:51 - CONCLUSION: Mild interstitial venous suggesting congestive failure. Neri Cervantes MD FACR PE at Discharge GENERAL: Well-developed, well-nourished, in respiratory distress on BiPAP. alert and orientated CARDIAC: Regular rhythm, regular rate. S1/S2 are heard. No murmurs gallops or rubs. LUNGS: Crackles noted bilaterally. No wheeze, rhonchi or rales. No use of accessory muscles on inspiration or expiration. ABDOMEN: Soft, nontender. Nondistended. Bowel sounds heard in all 4 quadrants. No organomegaly or masses. Negative rebound, negative guarding EXTREMITIES: 3+ pitting edema noted in bilateral lower extremities, pulses are equal bilaterally. No cyanosis or clubbing NEUROLOGY: Mood and affect appear appropriate. Cranial nerves II through XII grossly intact. Muscle strength 5/5 in upper and lower extremities bilaterally. Deep tendon reflexes are 2+ in upper and lower extremities bilaterally. Pt update on day of discharge Feels much better today. In the chair, family at bedside, very supportive. Patient has a good urine OP, he did use his cpap machine overnight. he is satting well on 2l NC. No cp,n/v/d/c. SOB improved significantly. Feels comfortable to go home. HR is controlle.d Patient failed O2 walking test and will have O2 arranged for home. Hospital Course (1) Severe sepsis. Resolving. ICD Code: A41.9 Status: Acute Plan: Patient meets criteria with tachycardia, tachypnea, community-acquired pneumonia, respiratory failure on admission Patient started on empirical antibiotics to include Rocephin and Zithromax Continue follow blood cultures, NTD Sputum cultures negative (2) Acute respiratory failure. Resolving Patient with h/o sleep apnea on CPAP at night . Patient to use his CPAP at night ICD Code: J96.00 Status: Acute Plan: Patient with acute respiratory failure with underlying congestive heart failure, pneumonia, elevated troponin Arterial blood gas shows improvement on BiPAP Continue BiPAP at night, continue weaning FiO2 to maintain O2 sats greater than 92%. Currently satting well on 5L NC. Chest x-ray on admission shows venous congestion and infiltrate and effusion of the left lung base. Repeat CXR 12/24 not much improvement. 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 No chest pain. (5) Atrial fibrillation with rapid ventricular response ICD Code: I48.91 Status: Acute Plan: Patient does have chronic atrial fibrillation, unable to anticoagulate secondary to recent GI bleed and thrombocytopenia Continue Cardizem IV, continue to wean to maintain heart rate less than 100. Transition to PO cardizem. Turn off cardizem drip if HRsustained < 90 and turn on drip if HR sustained > 110 Cardiology consulted for recommendations (6) Pneumonia involving left lung ICD Code: J18.9 Status: Acute Plan: Chest x-ray with left lung pneumonia, likely community-acquired infiltrate, most recent hospitalization was 8 months ago Continue antibiotics for treatment required pneumonias include Rocephin and Zithromax Sputum culture pending (7) Thrombocytopenia ICD Code: D69.6 Status: Acute Plan: Appears patient does have history of pancytopenia, Continue monitor platelet count. Consult hogshead weigher for monitoring recommendations Code Status No code, this was confirmed by patient Patient improved. Failed O2 walking test. Patient required O2 at home. Case management consulted for DC. Patient was discharge din stable condition home with home health. To follow up as OP with PCP and consultants. Pt Condition on Discharge: Stable Discharge Disposition: Disch w/ Home Health Serv Discharge Time: > 30 minutes Discharge Instructions DIET: Follow Instructions for: Heart Healthy Diet Activities you can perform: Regular-No Restrictions Follow up Referrals: Cardiology - 1 Week Oncology - 1 Week with Vikram Kruger MD PCP Follow-up - 3-5 Days New Medications: Azithromycin (Azithromycin) 250 Mg Tab 250 MG PO DAILY Infection #3 Ref 0 TAB Furosemide (Lasix) 40 Mg Tab 40 MG PO DAILY edema/chf #30 Ref 0 TAB Oxygen (O2) (Oxygen (O2)) Device 2 LITER TOM.CANULA CONTINUOUS Oxygen Concentrator Portable Gaseous 2 L/min via Nasal Canula Continuous For 99 months Prevent Hypoxemia #2 CYLINDER Potassium Bicarbonate Effervescent (Klor-Con EF) 25 Meq Tab 25 MEQ PO DAILY Electrolyte Replacement #30 Ref 0 TAB Carvedilol (Coreg) 6.25 Mg Tab 6.25 MG PO Q12HR Blood Pressure Management #60 TAB Diltiazem (Cardizem) 60 Mg Tab 60 MG PO Q6HR Blood Pressure Management #120 TAB Continued Medications: Albuterol 18 GM Inh (Ventolin Hfa 18 GM Inh) 90 Mcg/Act Aer 2 PUFF INH Q4-6H PRN SHORTNESS OF BREATH #1 Ref 0 INHALER Aspirin (Aspirin) 81 Mg Chew 81 MG CHEW DAILY Ref 0 TAB Capecitabine (Capecitabine) 500 Mg Tab 1000 MG PO DIRECTED Cytotoxic agent. Swallow whole with water 30 minutes after a meal. Do not cut or crush. TAB Lisinopril (Lisinopril) 2.5 Mg Tab 2.5 MG PO DAILY #30 Ref 0 TAB Ondansetron (Zofran) 4 Mg Tab 4 MG PO Q12HR PRN NAUSEA OR VOMITING Ref 0 TAB Sarahy García MD Dec 25, 2016 09:58
--- NOTE | 2016-12-25 10:01 | HHI.FF ---
Face to Face Verification Diagnosis: (1) SOB (shortness of breath) (2) Acute respiratory failure (3) Acute congestive heart failure (4) Atrial fibrillation with rapid ventricular response Physical Therapy Order: Evaluate and Treat Home Health Nursing Order: Medical education Signs/symptoms of disease process CHF education Oxygen administration education Medication education-adverse effect Nursing assessment with vital signs I have seen patient Guero Kellogg on 12/25/16. My clinical findings support the need for the requested home health care services because: Ltd mobility - disease progression Patient has SOB I certify that my clinical findings support that this patient is homebound because: Post-op weakness Sarahy García MD Dec 25, 2016 10:01
[2016-12-25] MEDS ORDERED: KLOR25TA2 PO (10:10)
[2016-12-25] MEDS ORDERED: DILT60TA33 PO (10:10)
[2016-12-25] MEDS ORDERED: FURO1TAB60 PO (10:10)
[2016-12-25] MEDS ORDERED: CARV6.25 PO (10:10)
[2016-12-25] MEDS ORDERED: AZIT250T3 PO (10:16)
[2016-12-25] MEDS ORDERED: OXYGENDME NAS.CANULA (10:18)
[2016-12-25] MEDS ORDERED: POTASSIUM CHLORIDE 10 MEQ CONTROLLED RELEASE TAB PO ONE (10:30)
[2016-12-25] MEDS: FUROSEMIDE 40 MG/4 ML VIAL IVP SCH (10:48)
== END 2016-12-25 14:30 | disposition home health service (06) | DRG 871 ==
LOC: PHED 13:23 → PHEDA 15:18 → PHICU 17:47
PROVIDERS: ADMIT Hospitalist; ATTEND Hospitalist
PROC: 5A09357 Assistance with Respiratory Ventilation, Less than 24 Consecutive Hours, Continuous Positive Airway Pressure (ICD-10-PCS; principal; 2016-12-22)
DX: A41.9 Sepsis, unspecified organism (principal); J96.00 Acute respiratory failure, unspecified whether with hypoxia or hypercapnia; I50.21 Acute systolic (congestive) heart failure; J18.9 Pneumonia, unspecified organism; R65.20 Severe sepsis without septic shock; C16.9 Malignant neoplasm of stomach, unspecified; C78.7 Secondary malignant neoplasm of liver and intrahepatic bile duct; K21.9 Gastro-esophageal reflux disease without esophagitis; I48.2 Chronic atrial fibrillation; I35.0 Nonrheumatic aortic (valve) stenosis; D69.59 Other secondary thrombocytopenia; T45.1X5A Adverse effect of antineoplastic and immunosuppressive drugs, initial encounter; I10 Essential (primary) hypertension; G47.33 Obstructive sleep apnea (adult) (pediatric); R74.8 Abnormal levels of other serum enzymes; Z66 Do not resuscitate; Z79.82 Long term (current) use of aspirin; I25.10 Atherosclerotic heart disease of native coronary artery without angina pectoris; Z92.21 Personal history of antineoplastic chemotherapy; Z92.3 Personal history of irradiation; Z85.46 Personal history of malignant neoplasm of prostate; Z23 Encounter for immunization; Z96.642 Presence of left artificial hip joint; Z87.891 Personal history of nicotine dependence; Z96.651 Presence of right artificial knee joint
CPT/HCPCS: 36600; 71010; 80048; 80053; 81001; 82550; 82552; 82805; 83605; 83690; 83735; 83880; 84100; 84484; 85025; 85610; 85730; 87040; 87070; 87205; 87641; 90471; 90732; 93005; 93306; 94002; 94150; 94620; 94640; 94664; 96365; G0009; J0456; J0696; J1940; J7050